=== PATIENT | female | born 1950 | race Caucasian/White ===

== ENCOUNTER 2016-06-19 18:15 | Emergency (ER) | payer OTHER ==
--- NOTE | 2016-06-19 20:36 | PROVIDER DOCUMENTATION ---
HPI-General Adult - General Source: patient - History of Present Illness -Gen Adult Nature of Presenting Problems: 66 y/o WF presents to ED with reports of cough, congestion x 3 days with weakness/fatigue, confusion x 1 day. Family states that she will have episodes of confusion, but seems to be better today. States that they were seen at [facility] walk in clinic today and after bloodwork and CXR, pt was sent here for "probable PNA and elecrolyte imbalances" per family. Denies any N/V/D/C, fever/ chills. States long hx of COPD and pt on 2 LPM of O2 at home. <Dayami Tran - Last Filed: 06/20/16 02:11> <Ash Chung - Last Filed: 06/20/16 03:03> <Néstor Ram - Last Filed: 06/20/16 04:52> - General Chief Complaint: General Adult Stated Complaint: PNEUMONIA Time Seen by Provider: 06/19/16 20:16 Allergies/Adverse Reactions: Patient Allergies Allergy/AdvReac Type Severity Reaction Status Date / Time iodine Allergy Severe SWELLING Verified 06/19/16 20:27 lamotrigine [From Lamictal] Allergy Severe RASH Verified 06/19/16 20:27 niacin Allergy Severe RASH Verified 06/19/16 20:27 shellfish derived Allergy Severe SWELLING Verified 06/19/16 20:27 salicylates Allergy Unknown Unknown Verified 06/19/16 20:27 levofloxacin [From Levaquin] Allergy SITE Verified 06/19/16 20:27 SWELLING WITH RASH Home Medications: Aspirin [Aspirin EC] 81 mg PO DAILY 03/20/13 Dicyclomine [Bentyl] 10 mg PO TID 03/20/13 Duloxetine [Cymbalta] 60 mg PO BID 03/20/13 Lisinopril 5 mg PO HS 03/20/13 ROSUVAstatin [Crestor] 10 mg PO QHS 03/20/13 Metformin [Glucophage] 500 mg PO BID CC 06/15/13 Levothyroxine [Synthroid] 50 microgm PO DAILY 06/16/14 Albuterol Sulfate [Proair Respiclick] 2 puff IH Q6H PRN PRN 03/25/15 Calcitonin,Douds,Synthetic [Calcitonin-Douds] 1 spray NS DAILY 03/25/15 Docusate Sodium [Colace] 300 mg PO DAILY 03/25/15 Fluticasone/Salmeterol [Advair 250-50 Diskus] 1 puff IH BID 03/25/15 Multivitamin [Multivitamins] 1 each PO DAILY 03/25/15 Esomeprazole Magnesium [Nexium] 20 mg PO HS 09/16/15 Hydrocodone/APAP 5 mg/325 mg [[place]-5] 1 each PO BID PRN PRN 02/27/16 Hydroxyzine 25 mg PO DAILY 02/27/16 Methadone 10 mg PO DAILY PRN PRN 02/27/16 Morphine Sulfate 100 mg PO BID PRN PRN 02/27/16 Pregabalin [Lyrica] 25 mg PO BID 02/27/16 Review of Systems - Adult - REVIEW OF SYSTEMS - ADULT Constitutional: reports: no symptoms reported. denies: chills, fever Eyes: reports: no symptoms reported. denies: blurred vision, double vision Ears, Nose, Mouth & Throat: reports: no symptoms reported. denies: ear pain, nose pain, throat pain Cardiovascular: reports: no symptoms reported. denies: chest pain, palpitations Respiratory: reports: see HPI, cough, shortness of breath. denies: dyspnea on exertion Gastrointestinal: reports: no symptoms reported. denies: abdominal pain, nausea , vomiting Genitourinary: reports: no symptoms reported. denies: dysuria, frequency Musculoskeletal: reports: no symptoms reported. denies: joint pain, joint swelling Integumentary: reports: no symptoms reported. denies: nail changes, rash Neurological: reports: no symptoms reported. denies: numbness, paresthesia Psychiatric: reports: no symptoms reported Endocrine: reports: no symptoms reported. denies: cold intolerance, heat intolerance Hematologic/Lymphatic: reports: no symptoms reported. denies: easy bruising, prolonged bleeding Allergic/Immunologic: reports: no symptoms reported All Other Systems: Reviewed and Negative <Dayami Tran - Last Filed: 06/20/16 02:11> Past History - Adult - PAST MEDICAL HISTORY-ADULT Review of Records: reports: Nursing Assessment Review, Medications Reviewed Major Childhood Illnesses: reports: denies history Cardiovascular: reports: HTN, other (AAA) Respiratory: reports: asthma, COPD Gastrointestinal: reports: denies history Obstetrical/Gynecological: reports: denies history Genitourinary: reports: denies history Musculoskeletal: reports: denies history Neurological: reports: denies history Psychiatric: reports: anxiety Endocrine/Immune: reports: denies history, Diabetes Other Conditions: reports: denies history - PRIOR SURGERIES/PROCEDURES Surgical/Procedure History: reports: reviewed, not pertinent, hysterectomy, other (AAA,bladder tach) - IMMUNIZATION STATUS Childhood Immunizations: See Nurse Assessment Flu Vaccine: See Nurse Assessment - FAMILY HISTORY Family History: reviewed, not pertinent - SOCIAL HISTORY Smoking: cigarettes, less than 1 pack/day Provider spent 3-5 mins advising pt. on dangers of tobacco.: Discussed manners to quit use, and f/u contacts for add'l counseling. <Dayami Tran - Last Filed: 06/20/16 02:11> Physical Exam-General - PHYSICAL EXAM-ADULT Initial Vital Signs Reviewed: Yes - CONSTITUTIONAL General Appearance: alert, moderate distress, cachetic - EYES Eyes: pink conjunctivae - HEAD, EARS, NOSE, MOUTH & THROAT HENMT: normocephalic/atraumatic - NECK Neck: normal inspection - RESPIRATORY Respiratory: decreased breath sounds, rhonchi, wheezing. negative: crackles, rales, stridor - CARDIOVASCULAR Cardiovascular: regular rate, rhythm. negative: bradycardia, tachycardia - GASTROINTESTINAL (ABDOMEN) Abdominal Exam: normal bowel sounds, non tender, soft. negative: distended, guarding, rigid, rebound - MUSCULOSKELETAL Back Exam: kyphosis Extremity: normal inspection, no pedal edema - SKIN Integumentary: normal color, normal turgor, warm/dry - NEUROLOGIC Neurologic: negative: aphasia - PSYCHIATRIC Psych/Mental Status: normal mood/affect, normal thought content, normal thought process, oriented x 3 (A&O x 4) <Dayami Tran - Last Filed: 06/20/16 02:11> Progress - XRAY 1 XRAY Study: Chest XRAY Interpretation: R lower lobe infiltrate with questionable central sternal mass - CHANGE OF SHIFT REPORT (ED Provider) Report Given and Care Transferred to:: Dr. Ram Time of Transfer: 02:11 Items Pending: CT/MRI Results <Dayami Tran - Last Filed: 06/20/16 02:11> - EKG 1 Time of EKG reading by physician:: 02:24 EKG Read and Signed by:: Néstor Ram EKG Interpretation (*Must complete 3 of following elements*): Abnormal Rate: 152 Rhythm: SINUS TACHYCARDIA Comments: MARKED ST ABNORMALITY. POSS. INFEROLATEWRAL SUBENDOCARDIAL INJURY. <Ash Chung - Last Filed: 06/20/16 03:03> Departure <Dayami Tran - Last Filed: 06/20/16 02:11> <Ash Chung - Last Filed: 06/20/16 03:03> - Departure Time of Disposition Order: 04:50 Certified Medical Emergency: Emergent <Néstor Ram - Last Filed: 06/20/16 04:52> - Departure DIAGNOSIS: Neoplasm of lung, Ischemic heart disease with chronotropic incompetence, Chronic obstructive lung disease Cardiac dysrhythmia Qualifiers: Arrhythmia type: supraventricular tachycardia Qualified Code(s): I47.1 - Supraventricular tachycardia Disposition: HOME 01 Condition: Fair Additional Instructions: CALL THIS MORNING FOR APPOINTMENT WITH DR VALLECILLO FOR REFERRALS TO [employer] Referrals: Renny Vallecillo MD [Primary Care Provider] - Attestation - Physician/ Mid-level Attestation Patient care was provided by Mid-level provider ([employer]/PA):: Yes Mid-level provider:: Dayami Tran Mid-level documentation review:: The Mid-level provider documentation, treatment plan and medical decision making was reviewed by the physician who agrees with all treatment and medical decision making by the [facility]. <Dayami Tran - Last Filed: 06/20/16 02:11> Physician Attestation
[2016-06-19 21:18] LABS: MANUAL DIFF NEEDED? NO
[2016-06-19 21:20] LABS: BASO% 0.6 % (0.0-0.8); EOS# 0.14 X1000 (0.0-0.7); HEMATOCRIT 33.2 % (37.0-47.0); HEMOGLOBIN 10.8 g/dL (12.0-16.0); LYMPH# 1.02 X1000 (1.2-3.4); LYMPH% 14.4 % (20.5-51.1); MCH 28.1 PG (27-31); MCHC 32.5 g/dL (33-37); MCV 86.2 FL (81-99); MONO# 0.55 X1000 (0.11-0.59); MONO% 7.8 % (1.7-9.3); NEUT% 75.2 % (42.2-75.2); PLT 225 X1000 (130-400); RBC 3.85 XMIL (4.2-5.4)
[2016-06-19 21:43] LABS: AGAP 9; ALBUMIN 3.7 g/dL (3.5-5.0); ALKALINE PHOSPHATASE 95 U/L (32-104); BUN 24 mg/dL (8-22); CALCIUM 8.9 mg/dL (8.8-10.2); CHLORIDE 102 mmol/L (98-107); COSMO 275; GOT 13 U/L (10-30); GPT 11 U/L (10-36); SODIUM 133 mmol/L (136-145); TCO2 22 mmol/L (25-35); TOTAL PROTEIN 8.1 g/dL (6.3-8.3)
[2016-06-20] MEDS ORDERED: MORPHINE IM ONE (01:21)
[2016-06-20] MEDS ORDERED: DUONEB (A & A) INH ONE (01:21)
[2016-06-20] MEDS ORDERED: ADENOCARD IV ONE (02:04)
[2016-06-20] MEDS ORDERED: NS 1,000 ML IV ONE (02:06)
[2016-06-20] MEDS ORDERED: CARDIZEM IV ONE ×2 (02:48→02:50)
[2016-06-20] MEDS ORDERED: CARDIZEM CD PO ONE (02:50)
[2016-06-20] MEDS ORDERED: CARDIZEM ONE (02:55)
[2016-06-20 05:08] VITALS: BP 113/69
--- NOTE | 2016-06-20 05:45 | EKG Report ---
Test Performed on : 06/20/2016 04:22:31 AM Test Reason : pain Blood Pressure : / mmHG Vent. Rate : 085 BPM Atrial Rate : 085 BPM P-R Int : 182 ms QRS Dur : 098 ms QT Int : 456 ms P-R-T Axes : 057 060 059 degrees QTc Int : 542 ms Normal sinus rhythm. Possible Left atrial enlargement T wave abnormality, consider inferior ischemia T wave abnormality, consider anterolateral ischemia Prolonged QT Abnormal ECG When compared with ECG of 20-JUN-2016 02:23, (Unconfirmed) Significant changes have occurred Unconfirmed Result
--- NOTE | 2016-06-20 06:16 | EKG Report ---
Test Performed on : 06/20/2016 02:23:41 AM Test Reason : repeat Blood Pressure : / mmHG Vent. Rate : 152 BPM Atrial Rate : 152 BPM P-R Int : 208 ms QRS Dur : 084 ms QT Int : 300 ms P-R-T Axes : 042 083 241 degrees QTc Int : 477 ms Sinus tachycardia. Marked ST abnormality, possible inferolateral subendocardial injury Abnormal ECG When compared with ECG of 27-FEB-2016 16:57, ST now depressed in Inferior leads ST more depressed in Anterolateral leads Inverted T waves have replaced nonspecific T wave abnormality in Inferior leads Inverted T waves have replaced nonspecific T wave abnormality in Anterolateral leads Unconfirmed Result
--- NOTE | 2016-06-20 09:47 | Diag Imaging Result Document ---
PROCEDURE NAME: CHEST-2 VIEWS - 06/19/2016 CHEST, TWO VIEWS: COMPARISON: 03/01/2016. FINDINGS: There is a large focal opacity within the right middle lobe which is nonspecific in appearance and could represent parenchymal consolidation or mass. A smaller opacity was noted at the right lung base on the previous study of 03/01/2016. CT scan of the chest should be considered. There are prominent interstitial markings, right lung, similar to prior study. Left lung is clear. No pneumothorax is appreciated. There is increased density in the subcarinal region, nonspecific in appearance. IMPRESSION: Interval increase in size of the right basilar pulmonary opacity. Findings may indicate pneumonia or mass. CT scan of the thorax should be considered. Correlate clinically.
--- NOTE | 2016-06-20 10:36 | Diag Imaging Result Document ---
PROCEDURE NAME: CT THORAX W/O CONTRAST - 06/20/2016 CT SCAN OF THE THORAX WITHOUT CONTRAST: COMPARISON: 10/09/2015. INDICATION: Chest mass. FINDINGS: There is bulky mediastinal lymphadenopathy measuring at least 4.5 cm in the subcarinal region. There is bulky pretracheal and AP pulmonary window adenopathy. There is right hilar adenopathy producing a mass effect upon the right middle lobe bronchus. There is dense consolidation with air bronchograms involving the right middle lobe. Also, within the right lower lobe there is a new 2.7 x 2.2 cm lobulated mass. There is probably a small amount of loculated fluid anteriorly on the right. There is pulmonary emphysema. There are new alveolar infiltrates within the anterior left upper lobe and left lower lobe which are new from the prior study. There are multiple ill-defined nodular opacities throughout the right lung, most of which were present on the prior study. No pericardial effusion is identified. IMPRESSION: 1. New 2.7 cm mass in the right lower lobe. The findings are suspicious for bronchogenic carcinoma or less likely metastasis. 2. New consolidation and atelectasis in the right middle lobe likely secondary to compression of the right middle lobe bronchus from bulky hilar and mediastinal lymphadenopathy. 3. New infiltrates within the left upper and left lower lobes. 4. Multiple stable irregular opacities in the right lung. 5. Small amount of loculated fluid, anterior right hemithorax.
== END 2016-06-20 05:34 | disposition home or self-care (01) ==
LOC: P.ED 18:15
DX: I47.1 Supraventricular tachycardia (principal); C34.90 Malignant neoplasm of unspecified part of unspecified bronchus or lung; I25.89 Other forms of chronic ischemic heart disease; J44.9 Chronic obstructive pulmonary disease, unspecified; R05 Cough; R06.02 Shortness of breath; I10 Essential (primary) hypertension; E11.9 Type 2 diabetes mellitus without complications; Z79.899 Other long term (current) drug therapy; Z86.79 Personal history of other diseases of the circulatory system; R94.31 Abnormal electrocardiogram [ECG] [EKG]; F17.210 Nicotine dependence, cigarettes, uncomplicated; Z71.6 Tobacco abuse counseling; R06.2 Wheezing; M40.209 Unspecified kyphosis, site unspecified; Z79.82 Long term (current) use of aspirin
CPT/HCPCS: 71020; 71250; 80053; 82550; 83605; 83880; 84484; 85025; 87040; 87804; 93005; 94640; 96361; 96374; 96375; 96376; J2270; J7030

== ENCOUNTER 2016-08-01 17:34 | Inpatient (IN) | payer OTHER ==
--- NOTE | 2016-08-01 18:04 | EKG Report ---
Test Performed on : 08/01/2016 5:57:11 PM Test Reason : CHEST PAIN Blood Pressure : / mmHG Vent. Rate : 088 BPM Atrial Rate : 088 BPM P-R Int : 164 ms QRS Dur : 102 ms QT Int : 396 ms P-R-T Axes : 067 077 072 degrees QTc Int : 479 ms Normal sinus rhythm. Possible Left atrial enlargement Borderline ECG When compared with ECG of 20-JUN-2016 04:22, T wave inversion no longer evident in Inferior leads QT has shortened Unconfirmed Result
--- NOTE | 2016-08-01 18:17 | ED EKG INTERP ---
EKG Interpretation - EKG Time of EKG reading by physician:: 17:57 EKG Read and Signed by:: Jose Herman EKG Interpretation (*Must complete 3 of following elements*): Normal Rate: 88 Rhythm: NSR Comments: Possible left atrial enlargement, Borderline ECG Attestation - Scribe Verification/Attestation Scribe:: Rody Chavez Acting as Scribe for:: Jose Herman Scribe documention review:: This chart was documented by a scribe and accurately reflects the service the provider performed and the decisions made by the provider.
--- NOTE | 2016-08-01 18:21 | ED EKG INTERP ---
EKG Interpretation - EKG Time of EKG reading by physician:: 18:12 EKG Read and Signed by:: Jose Herman EKG Interpretation (*Must complete 3 of following elements*): Normal Rate: 86 Rhythm: Sinus Rhythm marked Sinus arrhythmia Comments: Otherwise Normal ECG - EKG # 2 Time of EKG reading by physician:: 18:13 EKG Read and Signed by:: Jose Herman EKG Interpretation (*Must complete 3 of following elements*): Abnormal (ST&T wave abnormality, consider inferior ischemia, and consider anterolateral ischemia) Rate: 143 Rhythm: Supraventricular tachycardia Comments: Abnormal ECG Attestation - Scribe Verification/Attestation Scribe:: Rody Chavez Acting as Scribe for:: Jose Herman Scribe documention review:: This chart was documented by a scribe and accurately reflects the service the provider performed and the decisions made by the provider.
[2016-08-01] MEDS ORDERED: CARDIZEM ONE (18:25)
[2016-08-01] MEDS ORDERED: CARDIZEM CD PO ONE (18:30)
--- NOTE | 2016-08-01 18:34 | PROVIDER DOCUMENTATION ---
HPI-Cardiac General - General Chief Complaint: Dizziness Stated Complaint: PT IN SVT PER Time Seen by Provider: 08/01/16 18:31 Source: patient Allergies/Adverse Reactions: Patient Allergies Allergy/AdvReac Type Severity Reaction Status Date / Time iodine Allergy Severe SWELLING Verified 06/19/16 20:27 lamotrigine [From Lamictal] Allergy Severe RASH Verified 06/19/16 20:27 niacin Allergy Severe RASH Verified 06/19/16 20:27 shellfish derived Allergy Severe SWELLING Verified 06/19/16 20:27 salicylates Allergy Unknown Unknown Verified 06/19/16 20:27 levofloxacin [From Levaquin] Allergy SITE Verified 06/19/16 20:27 SWELLING WITH RASH Home Medications: Home Medication List Medication Instructions Recorded Confirmed Last Taken Type Aspirin [Aspirin EC] 81 mg PO DAILY 03/20/13 02/27/16 09/16/15 01:00 History Dicyclomine [Bentyl] 10 mg PO TID 03/20/13 02/27/16 08/26/15 History Duloxetine [Cymbalta] 60 mg PO BID 03/20/13 02/27/16 09/16/15 01:00 History Lisinopril 5 mg PO HS 03/20/13 02/27/16 09/16/15 01:00 History ROSUVAstatin [Crestor] 10 mg PO QHS 03/20/13 02/27/16 09/16/15 01:00 History Metformin [Glucophage] 500 mg PO BID CC 06/15/13 02/27/16 09/15/15 15:00 History Levothyroxine [Synthroid] 50 microgm PO DAILY 06/16/14 02/27/16 09/15/15 05:00 History Albuterol Sulfate [Proair 2 puff IH Q6H PRN PRN 03/25/15 02/27/16 09/15/15 11: 00 History Respiclick] Calcitonin,[place],Synthetic 1 spray NS DAILY 03/25/15 02/27/16 09/16/15 01:00 History [Calcitonin-[place]] Docusate Sodium [Colace] 300 mg PO DAILY 03/25/15 02/27/16 09/16/15 01:00 History Fluticasone/Salmeterol [Advair 1 puff IH BID 03/25/15 02/27/16 09/16/15 01:00 History 250-50 Diskus] Multivitamin [Multivitamins] 1 each PO DAILY 03/25/15 02/27/16 09/16/15 01:00 History Esomeprazole Magnesium [Nexium] 20 mg PO HS 09/16/15 02/27/16 09/16/15 01:00 History Baclofen [Lioresal] 10 mg PO TID@0900,1500,2100 #30 10/12/15 02/27/16 Unknown Rx tablet Tiotropium Conrad Inhaler 1 puff INH RTDAILY #1 inhaler 10/12/15 02/27/16 Unknown Rx [Spiriva] Hydrocodone/APAP 5 mg/325 mg 1 each PO BID PRN PRN 02/27/16 02/27/16 Unknown History [R[place]law-5] Hydroxyzine 25 mg PO DAILY 02/27/16 02/27/16 Unknown History Methadone 10 mg PO DAILY PRN PRN 02/27/16 02/27/16 Unknown History Morphine Sulfate 100 mg PO BID PRN PRN 02/27/16 02/27/16 Unknown History Pregabalin [Lyrica] 25 mg PO BID 02/27/16 02/27/16 Unknown History Amoxicillin/Potassium Clav 1 each PO Q12H #14 tablet 03/02/16 Unknown Rx [Augmentin 500-125 Tablet] Diltiazem C.d. [Cardizem C.d] 120 mg PO DAILY #30 capsule 03/02/16 Unknown Rx - History of Present Illness-Cardiac Nature of Presenting Problem: 66 Y/O F presents to ED with Dizziness. Pt was sent to ED by Dr. Christian due to being in SVT, Pt originally went to PMD due to dizziness, confusion, and incontinence. Location: reports: central Quality of Pain: reports: none Severity in ED: moderate Onset/Duration: this afternoon Timing: still present History of arrythmia: reports: SVT Associated Symptoms: reports: dizziness, shortness of breath Recently Seen Here or By Another Healthcare Provider: Yes Review of Systems - Adult - REVIEW OF SYSTEMS - ADULT Constitutional: denies: chills, fever Eyes: reports: no symptoms reported Ears, Nose, Mouth & Throat: reports: no symptoms reported Cardiovascular: reports: irregular heart rate Respiratory: reports: no symptoms reported Gastrointestinal: reports: no symptoms reported Genitourinary: reports: incontinence Musculoskeletal: reports: no symptoms reported Integumentary: reports: no symptoms reported Neurological: reports: dizziness/vertigo Psychiatric: reports: no symptoms reported Endocrine: reports: no symptoms reported Hematologic/Lymphatic: reports: no symptoms reported Allergic/Immunologic: reports: no symptoms reported All Other Systems: Reviewed and Negative Past History - Adult - PAST MEDICAL HISTORY-ADULT Review of Records: reports: Old Records Reviewed, Nursing Assessment Review, Medications Reviewed, Social history reviewed & non-contributory. Major Childhood Illnesses: reports: denies history Cardiovascular: reports: HTN, other (AAA) Respiratory: reports: asthma, COPD Gastrointestinal: reports: denies history Obstetrical/Gynecological: reports: denies history Genitourinary: reports: denies history Musculoskeletal: reports: denies history Neurological: reports: denies history Psychiatric: reports: anxiety Endocrine/Immune: reports: denies history, Diabetes Other Conditions: reports: denies history - PRIOR SURGERIES/PROCEDURES Surgical/Procedure History: reports: reviewed, not pertinent, hysterectomy, other (AAA,bladder tach) - IMMUNIZATION STATUS Childhood Immunizations: See Nurse Assessment Flu Vaccine: See Nurse Assessment - FAMILY HISTORY Family History: reviewed, not pertinent - SOCIAL HISTORY Smoking: cigarettes, greater than 1 pack/day Substance Use: none/never Alcohol Use Frequency: never Living Situation: family Physical Exam-General - CONSTITUTIONAL General Appearance: appears well, alert, no apparent distress - EYES Eyes: PERRL/EOMI, pink conjunctivae - HEAD, EARS, NOSE, MOUTH & THROAT HENMT: normocephalic/atraumatic, moist mucous membranes, normal ENT inspection, TMs normal - NECK Neck: non-tender, full range of motion, supple, normal inspection - RESPIRATORY Respiratory: chest non-tender - CARDIOVASCULAR Cardiovascular: normal peripheral pulses - GASTROINTESTINAL (ABDOMEN) Abdominal Exam: normal bowel sounds, non tender, soft - MUSCULOSKELETAL Back Exam: normal inspection Extremity: normal range of motion - SKIN Integumentary: normal color, normal turgor, warm/dry - NEUROLOGIC Neurologic: bologna maker II-XII nml as tested - PSYCHIATRIC Psych/Mental Status: normal mood/affect, normal thought content, normal thought process, oriented x 3 Progress - PLAN OF CARE/RESULTS Progress/Plan/Lab Results: Laboratory Tests 08/01/16 08/01/16 08/01/16 18:15 18:15 18:15 WBC RBC Hgb Hct MCV MCH MCHC RDW Std Deviation Plt Count MPV Immature Gran % (Auto) Neut % (Auto) Lymph % (Auto) Louisa % (Auto) Eos % (Auto) Baso % (Auto) Immature Gran # (Auto) Neut # (Auto) Lymph # (Auto) Louisa # (Auto) Eos # (Auto) Baso # (Auto) PT INR APTT (Factor Assay) D-Dimer Sodium 127 L Potassium 3.5 Chloride 94 L Carbon Dioxide 21 L Anion Gap 12 BUN 20 Creatinine 0.8 Estimated GFR/1.73 m2 > 60 BUN/Creatinine Ratio 25 Glucose 161 H Calculated Osmolality 261 Calcium 8.9 Magnesium 1.7 Total Bilirubin 0.30 AST 29 ALT 29 Alkaline Phosphatase 98 Creatine Kinase 543 H Creatine Kinase Index 2.9 H CK-MB (CK-2) 15.64 H Troponin T < 0.010 Eib-P-Cekboslmwbz Pept 390 H Total Protein 7.3 Albumin 3.1 L Globulin 4.0 Albumin/Globulin Ratio 1.0 Urine Source Urine Color Urine Clarity Urine pH Ur Specific [place] Urine Protein Urine Ketones Urine Blood Urine Nitrite Urine Bilirubin Urine Urobilinogen Urine Microscopic RBC Urine WBC Urine Microscopic WBC Ur Epithelial Cells Urine Bacteria Urine Glucose 08/01/16 08/01/16 08/01/16 18:15 18:15 18:15 WBC 8.55 RBC 3.60 L Hgb 10.1 L Hct 30.3 L MCV 84.2 MCH 28.1 MCHC 33.3 RDW Std Deviation 17.3 H Plt Count 262 MPV 8.4 Immature Gran % (Auto) 0.2 Neut % (Auto) 80.2 H Lymph % (Auto) 11.8 L Louis[place] % (Auto) 6.5 Eos % (Auto) 0.9 Baso % (Auto) 0.4 Immature Gran # (Auto) 0.02 Neut # (Auto) 6.85 H Lymph # (Auto) 1.01 L [place] # (Auto) 0.56 Eos # (Auto) 0.08 Baso # (Auto) 0.03 PT 14.2 INR 1.07 APTT (Factor Assay) 35.4 D-Dimer 2.38 H Sodium Potassium Chloride Carbon Dioxide Anion Gap BUN Creatinine Estimated GFR/1.73 m2 BUN/Creatinine Ratio Glucose Calculated Osmolality Calcium Magnesium 1.7 Total Bilirubin AST ALT Alkaline Phosphatase Creatine Kinase Creatine Kinase Index CK-MB (CK-2) Troponin T Twy-Z-Cilbnyurslv Pept Total Protein Albumin Globulin Albumin/Globulin Ratio Urine Source Urine Color Urine Clarity Urine pH Ur Specific [place] Urine Protein Urine Ketones Urine Blood Urine Nitrite Urine Bilirubin Urine Urobilinogen Urine Microscopic RBC Urine WBC Urine Microscopic WBC Ur Epithelial Cells Urine Bacteria Urine Glucose 08/01/16 21:10 WBC RBC Hgb Hct MCV MCH MCHC RDW Std Deviation Plt Count MPV Immature Gran % (Auto) Neut % (Auto) Lymph % (Auto) [place] % (Auto) Eos % (Auto) Baso % (Auto) Immature Gran # (Auto) Neut # (Auto) Lymph # (Auto) [place] # (Auto) Eos # (Auto) Baso # (Auto) PT INR APTT (Factor Assay) D-Dimer Sodium Potassium Chloride Carbon Dioxide Anion Gap BUN Creatinine Estimated GFR/1.73 m2 BUN/Creatinine Ratio Glucose Calculated Osmolality Calcium Magnesium Total Bilirubin AST ALT Alkaline Phosphatase Creatine Kinase Creatine Kinase Index CK-MB (CK-2) Troponin T Tbo-T-[place] Pept Total Protein Albumin Globulin Albumin/Globulin Ratio Urine Source CLEAN CATCH Urine Color YELLOW Urine Clarity CLEAR Urine pH 6.5 Ur Specific [place] 1.010 Urine Protein TRACE A Urine Ketones NEGATIVE Urine Blood NEGATIVE Urine Nitrite NEGATIVE Urine Bilirubin NEGATIVE Urine Urobilinogen 1+(1 mg/dL) Urine Microscopic RBC <10 Urine WBC TRACE A Urine Microscopic WBC <10 Ur Epithelial Cells <10 Urine Bacteria 1+ Urine Glucose NEGATIVE Orders Category Date Time Status Cardiac Monitoring DIRECTED Care 08/01/16 17:43 Active Oxygen Therapy- ED Nursing DIRECTED Care 08/01/16 17:43 Active Saline Loc NOW Care 08/01/16 17:43 Active ANGIOGRAM/PULMONARY ARTERIES [CT] Stat Exams 08/01/16 19:18 Taken HEAD W/CONTRAST [CT] Routine Exams 08/01/16 21:28 Taken HEAD W/O CONTRAST [CT] Stat Exams 08/01/16 20:32 Taken CBC WITH ELECTRONIC DIFF [HEME] Stat Lab 08/01/16 18:15 Completed CK PROFILE [SP CHEM] Stat Lab 08/01/16 18:15 Completed CK PROFILE [SP CHEM] Stat Lab 08/01/16 21:52 Ordered COMPREHENSIVE METABOLIC PANEL [CHEM] Stat Lab 08/01/16 18:15 Completed D-DIMER PL [COAG] Stat Lab 08/01/16 18:15 Completed MAGNESIUM [CHEM] Stat Lab 08/01/16 18:15 Completed MAGNESIUM [CHEM] Stat Lab 08/01/16 18:15 Completed PRO B-NATRIURETIC PEPTIDE Stat Lab 08/01/16 18:15 Com[address]IME WITH INR PL [COAG] Stat Lab 08/01/16 18:[address] [COAG] Stat Lab 08/01/16 18:15 Completed TROPONIN T Stat Lab 08/01/16 18:15 Completed TROPONIN T Stat Lab 08/01/16 21:[address] W/POSS RFLX CULT [URINALYSIS] Stat Lab 08/01/16 21:10 Completed URINE CULTURE [RM] Routine Lab 08/01/16 21:45 Ordered Diltiazem C.d. [Cardizem Cd] Med 08/01/16 18:30 Discontinued 120 mg PO NOW ONE Diltiazem [Cardizem] Med 08/01/16 18:25 Discontinued 120 mg .ROUTE .STK-MED ONE EKG [EKG] Stat Ther 08/01/16 17:43 Draft EKG [EKG] Stat Ther 08/01/16 20:09 Draft EKG [EKG] Stat Ther 08/01/16 20:10 Draft EKG [EKG] Stat Ther 08/01/16 21:52 Ordered Vital Signs - 24 hr 08/01/16 08/01/16 08/01/16 17:38 17:45 19:34 Temperature 97.3 F L 98.4 F Pulse Rate 92 H 94 H 91 H Respiratory 16 22 22 Rate Blood Pressure 109/72 107/70 O2 Sat by Pulse 96 100 Oximetry 08/01/16 08/01/16 19:50 21:41 Temperature Pulse Rate 137 H 92 H Respiratory 12 22 Rate Blood Pressure 102/71 112/70 O2 Sat by Pulse 92 L 93 L Oximetry - EKG 1 Time of EKG reading by physician:: 21:54 EKG Read and Signed by:: Jose Herman EKG Interpretation (*Must complete 3 of following elements*): Normal Rate: 90 Rhythm: NSR Comments: Possible left atrial enlargement, Borderline ECG - CT/MRI 1 CT Study: Angiogram (Mediastinal adenopathy, markedly worsened sinc4e 07/01/13. Bilateral peripheal lower love emboli. Patchy pneumio/pneumonitis and COPD, worsened opacity and volume lose in RML. Located effusion anteriorly on rt. 3.6cmRLL mass. Worsened RIL and RLL opacitites. Retroperitoneal, gastrohepatic and periportal adenopathy.) Impression: Abnormal CT Results: See Notes 2 CT Study: Head Impression: Normal CT Results: NO BLEED, MASS EFFECT, OR ABNORMAL ENHANCEMENTS - CONSULTS/PCP/HOSPITALIST Notification #1 *Consult/PCP/Hospitalist*: Dr. Blackwood Time Discussed: 23:17 Reason/Comments: Admit Consult Disposition: Admit (Admit Accepted) Departure - Departure Time of Disposition Order: 22:04 DIAGNOSIS: Pulmonary embolism Qualifiers: Pulmonary embolism type: other Chronicity: unspecified Acute cor pulmonale presence: without acute cor pulmonale Qualified Code(s): I26.99 - Other pulmonary embolism without acute cor pulmonale Disposition: ADMITTED INPATIENT 09 Certified Medical Emergency: Emergent Condition: Stable Additional Instructions: ED Follow Up Instructions: You have been treated by a care provider in the Emergency Department. These instructions are being provided to you so you can have an understanding of how to care for yourself upon discharge. Upon discharge from the Emergency Department, you are responsible for making arrangements for follow-up care by a physician of your choice. Take all prescribed medications as directed. Return to the Emergency Department immediately for any new or worsening symptoms. You may call the Physician Referral phone number at [phone] to obtain a list of Physicians who are taking new patients. Referrals: Yao Christian MD [Primary Care Provider] - Attestation - Scribe Verification/Attestation Scribe:: Rody Chavez Acting as Scribe for:: Jose Herman Scribe documention review:: This chart was documented by a scribe and accurately reflects the service the provider performed and the decisions made by the provider.
[2016-08-01 18:41] LABS: MANUAL DIFF NEEDED? NO
[2016-08-01 18:42] LABS: BASO% 0.4 % (0.0-0.8); EOS# 0.08 X1000 (0.0-0.7); EOS% 0.9 % (0.0-10.0); HEMATOCRIT 30.3 % (37.0-47.0); HEMOGLOBIN 10.1 g/dL (12.0-16.0); IMM GRAN# 0.02 X1000 (0.0-0.04); IMM GRAN% 0.2 % (0.0-0.5); LYMPH# 1.01 X1000 (1.2-3.4); LYMPH% 11.8 % (20.5-51.1); MCH 28.1 PG (27-31); MCHC 33.3 g/dL (33-37); MCV 84.2 FL (81-99); MONO# 0.56 X1000 (0.11-0.59); MONO% 6.5 % (1.7-9.3); MPV 8.4 FL (7.4-10.4); NEUT% 80.2 % (42.2-75.2); PLT 262 X1000 (130-400)
[2016-08-01 18:55] LABS: INR 1.07 (0.86-1.15); PROTIME 14.2 Seconds (12.1-15.5)
[2016-08-01 18:56] LABS: PTT PL 35.4 Seconds (22.6-43.9)
[2016-08-01 18:57] LABS: AGAP 12; ALBUMIN 3.1 g/dL (3.5-5.0); ALKALINE PHOSPHATASE 98 U/L (32-104); BUN 20 mg/dL (8-22); CALCIUM 8.9 mg/dL (8.8-10.2); CHLORIDE 94 mmol/L (98-107); COSMO 261; GOT 29 U/L (10-30); GPT 29 U/L (10-36); MAGNESIUM 1.7 mg/dL (1.5-2.7); POTASSIUM 3.5 mmol/L (3.5-5.1); SODIUM 127 mmol/L (136-145); TCO2 21 mmol/L (25-35); TOTAL PROTEIN 7.3 g/dL (6.3-8.3)
[2016-08-01 19:01] LABS: CK PROFILE 543 U/L (24-173)
[2016-08-01 19:35] LABS: CK INDEX 2.9 (0.0-2.5); CK-MB 15.64 ng/mL (0.0-5.0)
--- NOTE | 2016-08-01 20:11 | EKG Report ---
Test Performed on : 08/01/2016 6:13:34 PM Test Reason : svt Blood Pressure : / mmHG Vent. Rate : 143 BPM Atrial Rate : 074 BPM P-R Int : 000 ms QRS Dur : 100 ms QT Int : 316 ms P-R-T Axes : 000 085 253 degrees QTc Int : [address] & T wave abnormality, consider inferior ischemia ST & T wave abnormality, consider anterolateral ischemia Abnormal ECG When compared with ECG of 01-AUG-2016 18:12, (Unconfirmed) Vent. rate has increased BY 57 BPM T wave inversion now evident in Inferior leads T wave inversion now evident in Anterolateral leads Unconfirmed Result
--- NOTE | 2016-08-01 20:12 | EKG Report ---
Test Performed on : 08/01/2016 6:12:59 PM Test Reason : ekg Blood Pressure : / mmHG Vent. Rate : 086 BPM Atrial Rate : 086 BPM P-R Int : 162 ms QRS Dur : 106 ms QT Int : 376 ms P-R-T Axes : 074 085 075 degrees QTc Int : 449 ms Sinus rhythm. with marked sinus arrhythmia. Otherwise normal ECG When compared with ECG of 01-AUG-2016 17:57, (Unconfirmed) No significant change was found Unconfirmed Result
[2016-08-01 21:18] LABS: URINE SOURCE CLEAN CATCH
[2016-08-01 21:26] LABS: BILIRUBIN URINE NEGATIVE (NEGATIVE); BLOOD URINE NEGATIVE (NEGATIVE); CLARITY CLEAR (CLEAR); COLOR YELLOW; GLUCOSE URINE NEGATIVE (NEGATIVE); LEUKOCYTES URINE TRACE (NEGATIVE); NITRITE URINE NEGATIVE (NEGATIVE); PH URINE 6.5; PROTEIN URINE TRACE mg/dL (NEGATIVE); UROBILINOGEN URINE 1+(1 mg/dL)
[2016-08-01 21:44] LABS: URINE CULTURE PL NEEDED? YES; URINE EPITHELIAL CELLS <10 /HPF (<10); URINE RBC <10 /HPF (<10); URINE WBC <10 /HPF (<10)
--- NOTE | 2016-08-01 22:37 | EKG Report ---
Test Performed on : 08/01/2016 9:54:52 PM Test Reason : cp Blood Pressure : / mmHG Vent. Rate : 090 BPM Atrial Rate : 090 BPM P-R Int : 166 ms QRS Dur : 100 ms QT Int : 382 ms P-R-T Axes : 067 073 065 degrees QTc Int : 467 ms Normal sinus rhythm. Possible Left atrial enlargement Borderline ECG When compared with ECG of 01-AUG-2016 18:13, (Unconfirmed) Vent. rate has decreased BY 53 BPM T wave inversion no longer evident in Inferior leads T wave inversion no longer evident in Anterolateral leads Unconfirmed Result
[2016-08-01 23:26] LABS: CK INDEX 2.9 (0.0-2.5); CK-MB 11.88 ng/mL (0.0-5.0)
[2016-08-01] MEDS ORDERED: NS 1,000 ML IV SCH (23:45)
[2016-08-01] MEDS ORDERED: TYLENOL PO PRN (23:49)
[2016-08-01] MEDS ORDERED: MORPHINE IV PRN (23:49)
[2016-08-02] MEDS ORDERED: SODIUM CHLORIDE 0.9% 10 ML ONE (01:44)
[2016-08-02] MEDS ORDERED: LEVAQUIN 500 MG/D5W 100 ML IV ONE (02:10)
[2016-08-02] MEDS ORDERED: LEVAQUIN 500 MG/D5W 100 ML IV SCH (02:15)
[2016-08-02] MEDS: LOVENOX SUBQ SCH ×3 (02:17→23:40)
[2016-08-02] MEDS: NORCO-5 PO PRN ×2 (02:18→19:27)
[2016-08-02] MEDS: ROCEPHIN 1 GM/NS 50 ML IV SCH ×2 (04:05→08:57)
--- NOTE | 2016-08-02 08:29 | EKG Report ---
Test Performed on : 08/02/2016 08:13:58 AM Test Reason : R/O SVT Blood Pressure : / mmHG Vent. Rate : 095 BPM Atrial Rate : 095 BPM P-R Int : 172 ms QRS Dur : 102 ms QT Int : 364 ms P-R-T Axes : 067 078 064 degrees QTc Int : 457 ms Normal sinus rhythm. Possible Left atrial enlargement Borderline ECG When compared with ECG of 01-AUG-2016 21:54, (Unconfirmed) No significant change was found Confirmed by Jose Herman MD ([id number]) on 08/08/2016 9:05:09 PM
[2016-08-02] MEDS: COLACE PO SCH (08:56)
[2016-08-02] MEDS: LIORESAL PO SCH ×3 (08:56→20:48)
[2016-08-02] MEDS: MORPHINE IV PRN ×6 (08:57→23:40)
[2016-08-02] MEDS: ASPIRIN EC PO SCH (08:57)
[2016-08-02] MEDS: CYMBALTA PO SCH ×2 (08:57→20:47)
[2016-08-02] MEDS ORDERED: CARDIZEM CD PO SCH (09:00)
--- NOTE | 2016-08-02 09:15 | Diag Imaging Result Document ---
PROCEDURE NAME: ANGIOGRAM/PULMONARY ARTERIES - 08/01/2016 CTA CHEST: COMPARISON: 07/01/2013. FINDINGS: There is excessive respiratory motion artifact at the lower lung zones. This limits sensitivity and specificity for detection of small distal pulmonary emboli. However, there are a few distal pulmonary artery branches at both lung bases that are not well opacified. As such, small pulmonary emboli cannot be excluded. However, it is certainly possible that this is an artifact due to the excessive motion. No large central pulmonary emboli are identified. There is mild descending aortic atherosclerotic calcification. There is no evidence of aortic dissection or aneurysm. There is severe mediastinal lymphadenopathy and right hilar lymphadenopathy. This has worsened significantly during the interval. For reference, there is a large conglomerate eliseo mass in the pretracheal region that measures up to 5.9 x 5.2 cm axially. There is also significant subcarinal lymphadenopathy. There is extensive pulmonary emphysema. In the right lower lobe near the base there is a mass measuring 3.3 x 2.8 cm. This is highly concerning for malignancy. There are multilobar infiltrates involving the right lung with a basilar predominance. This is worse at the right middle lobe and right lower lobe at the base. There is milder infiltrate at the inferior right upper lobe. This suggests pneumonia. There is also volume loss involving the right middle lobe. There is much milder infiltrate at the medial left lung base and anterolateral left lung base. There is a small loculated pleural fluid collection at the anterior aspect of the right lung base. Limited views of the upper abdomen reveal extensive lymphadenopathy in the retroperitoneal, periportal, and epigastric spaces. This has developed during the interval. IMPRESSION: 1. Right basilar lung mass and severe mediastinal and right hilar lymphadenopathy, highly concerning for malignancy. 2. Emphysema. 3. Extensive airspace consolidation at the mid and lower lung zone on the right and minimal consolidation at the left lung base suggesting pneumonia/pneumonitis. 4. Loculated pleural effusion at the anterior right lung base. 5. Extensive lymphadenopathy involving the upper abdomen. 6. Questionable filling defects in the distal branches of the pulmonary arteries bilaterally at the bases, which could indicate a small distal pulmonary emboli. However, there is excessive motion artifact in this region. It is possible that it is artifactual.
[2016-08-02] MEDS ORDERED: CARDIZEM PO ONE (11:12)
[2016-08-02] MEDS ORDERED: MAXIPIME 1 GM/NS 50 ML IV SCH (11:15)
[2016-08-02] MEDS ORDERED: FLAGYL 500 MG/NS 100 ML IV SCH (11:15)
[2016-08-02] MEDS: ZOSYN 3.375 GM/NS 50 ML IV SCH ×3 (11:23→23:39)
[2016-08-02] MEDS: SODIUM CHLORIDE 0.9% INJ SCH (11:25)
[2016-08-02] MEDS: PROTONIX IV SCH (11:25)
[2016-08-02] MEDS: NS 1,000 ML IV SCH (11:26)
[2016-08-02] MEDS: METHADONE PO PRN (11:41)
[2016-08-02] MEDS ORDERED: XOPENEX NEB INH PRN (11:52)
[2016-08-02 11:55] LABS: URINE CULTURE PL NEEDED? NO
--- NOTE | 2016-08-02 11:59 | EKG Report ---
Test Performed on : 08/02/2016 11:07:29 AM Test Reason : op Blood Pressure : / mmHG Vent. Rate : 145 BPM Atrial Rate : 145 BPM P-R Int : 128 ms QRS Dur : 092 ms QT Int : 304 ms P-R-T Axes : 000 082 252 degrees QTc Int : 472 ms Sinus tachycardia. Low voltage QRS ST & T wave abnormality, consider inferior ischemia ST & T wave abnormality, consider anterolateral ischemia Abnormal ECG When compared with ECG of 02-AUG-2016 08:13, (Unconfirmed) Vent. rate has increased BY 50 BPM T wave inversion now evident in Inferior leads T wave inversion now evident in Anterolateral leads Confirmed by Jose Herman MD ([id number]) on 08/08/2016 9:05:00 PM
[2016-08-02 12:13] LABS: BILIRUBIN URINE NEGATIVE (NEGATIVE); BLOOD URINE NEGATIVE (NEGATIVE); CLARITY CLEAR (CLEAR); COLOR YELLOW; GLUCOSE URINE NEGATIVE (NEGATIVE); LEUKOCYTES URINE NEGATIVE (NEGATIVE); NITRITE URINE NEGATIVE (NEGATIVE); PROTEIN URINE NEGATIVE (NEGATIVE); SP GRAVITY URINE 1.005; UROBILINOGEN URINE 1+(1 mg/dL)
[2016-08-02 12:20] LABS: URINE EPITHELIAL CELLS <10 /HPF (<10); URINE SOURCE CATH
--- NOTE | 2016-08-02 12:59 | HISTORY AND PHYSICAL ---
CHIEF COMPLAINT: Shortness of breath. Altered mentation. HISTORY OF PRESENT ILLNESS: This is a 66-year-old female with history of recently diagnosed lung cancer followed by Dr. Polk, who comes in for altered mentation and shortness of breath. She came in last night with significant dyspnea, confusion, dizziness. She was seen in urgent care per Dr. Christian, felt to be in SVT, and was sent to the ER for evaluation. She was evaluated for further treatment. She was noted to be in periodic SVT and rate controlled. She was found to have a PE and she was admitted for treatment. Over read on CT angiogram did show pneumonia, lung mass, filling defects and lower lobe emboli, and a loculated pleural effusion. Patient admitted for again multiple issues. She does report a cough, but no fevers, progressive shortness of breath, but mostly intermittent confusion. PAST MEDICAL HISTORY: Chronic obstructive pulmonary disease on home oxygen, recent right lower lobe pneumonia, and AAA history. PAST SURGICAL HISTORY: She has also had hysterectomy and bladder tack and AAA repair. SOCIAL HISTORY: She still smokes a pack a day. She has done that for multiple years. Alcohol negative. ALLERGIES: She is allergic to iodine, lamotrigine, niacin, shellfish, salicylates and Levaquin. REVIEW OF SYSTEMS: Otherwise negative times a 10 point review of systems. PHYSICAL EXAMINATION: VITAL SIGNS: Blood pressure 107/65, heart rate of 90 respiratory of 15, temperature 98.0 degrees, satting 97% on 2 L. GENERAL: Thin female in no acute distress. HEAD EXAM: Normocephalic, atraumatic. EYE EXAM: Pupils equal, round, reactive to light. Extraocular movements were intact. EAR/NOSE/THROAT EXAM: Showed moist mucous membranes. NECK EXAM: Supple. CARDIOVASCULAR EXAM: This was tachy, but regular. PULMONARY EXAM: Bilateral breath sounds. Diminished at bases. GI: Soft, nontender, nondistended. Bowel sounds are positive. EXTREMITY EXAM: No clubbing or cyanosis. No palpable cords. No Homans sign, although she has been complaining of pain in her left leg. NEUROLOGICAL: Exam was nonfocal. LABORATORY DATA/X-RAY DATA: White count 8.5, hemoglobin and hematocrit 10 and 30, platelets 262. Sodium 127. Cardiac enzymes were negative. Troponin negative. D-dimer positive. Urine was unremarkable. Flu test was negative. CT showed multiple issues with pneumonia in the right lobe left base, loculated pleural effusion right lower lobe, extensive lymphadenopathy, questionable filling defects which could be small distal pulmonary emboli, right basilar lung mass which again is known. PROBLEM LIST: This is a 66-year-old female presenting with dyspnea, cough, altered mentation, evidence of pneumonia and possible pulmonary embolism. 1. Pneumonia. We will continue empiric antibiotics. I will do Zosyn just to treat for postobstructive pneumonia. Continue breathing treatments as needed. Oxygen therapy. 2. Questionable pulmonary embolism. Will evaluate with Doppler ultrasound and follow. 3. Supraventricular tachycardia. Currently she has still intermittent episodes of sinus tachycardia. I am not sure if that may be reactive. At this point, I do not think she has jennifer supraventricular tachycardia, but we will continue her Cardizem and follow. 4. Disposition: Pending her clinical status. We will continue to monitor in the ICU.
[2016-08-02] MEDS ORDERED: PRILOSEC PO SCH (21:00)
[2016-08-03] MEDS: NS 1,000 ML IV SCH (01:15)
[2016-08-03] MEDS: DILAUDID IV PRN ×5 (03:02→22:26)
[2016-08-03] MEDS: XANAX PO PRN ×2 (03:02→22:37)
[2016-08-03] MEDS: ZOSYN 3.375 GM/NS 50 ML IV SCH ×3 (05:12→18:21)
[2016-08-03 06:30] LABS: HEMATOCRIT 30.7 % (37.0-47.0); MCH 27.4 PG (27-31); MCHC 32.6 g/dL (33-37); MCV 84.1 FL (81-99); MPV 8.5 FL (7.4-10.4); RBC 3.65 XMIL (4.2-5.4)
[2016-08-03 07:04] LABS: AGAP 13; BUN 9 mg/dL (8-22); CALCIUM 8.8 mg/dL (8.8-10.2); CHLORIDE 99 mmol/L (98-107); COSMO 267; MAGNESIUM 1.7 mg/dL (1.5-2.7); POTASSIUM 3.1 mmol/L (3.5-5.1); SODIUM 133 mmol/L (136-145); TCO2 21 mmol/L (25-35)
[2016-08-03] MEDS: COLACE PO SCH (08:56)
[2016-08-03] MEDS: CARDIZEM CD PO SCH (08:56)
[2016-08-03] MEDS: LIORESAL PO SCH ×3 (08:56→22:21)
[2016-08-03] MEDS: ASPIRIN EC PO SCH (08:57)
[2016-08-03] MEDS: CYMBALTA PO SCH ×2 (08:57→22:21)
[2016-08-03] MEDS ORDERED: ZOFRAN IV PRN (09:53)
[2016-08-03] MEDS: NORCO-5 PO PRN ×2 (10:27→19:55)
[2016-08-03] MEDS: LOVENOX SUBQ SCH (11:20)
[2016-08-03] MEDS: PROTONIX IV SCH (11:20)
[2016-08-03] MEDS: METHADONE PO PRN (11:20)
[2016-08-03] MEDS ORDERED: MOVANTIK PO ONE (12:06)
--- NOTE | 2016-08-03 13:20 | Diag Imaging Result Document ---
PROCEDURE NAME: KUB ABDOMEN - 08/03/2016 PORTABLE AP SUPINE ABDOMEN: COMPARISON: 02/28/2016. FINDINGS: There is a large amount of retained fecal debris in the colon and rectum, particularly the right colon, compatible with constipation. The bowel gas pattern otherwise appears nonspecific and nonobstructive. There are degenerative changes noted at the lower lumbar spine and right hip. IMPRESSION: Constipation.
--- NOTE | 2016-08-03 13:53 | PROGRESS NOTE ---
DATE: 08/03/2016 SUBJECTIVE: Patient has no focal complaints. OBJECTIVE: Blood pressure 131/81, heart rate of 80, respiratory rate 19, temperature 97.8 degrees, 97% on 3 L.Cardiovascular: Regular rate and rhythm. Pulmonary: Bilateral breath sounds. Clear to auscultation. Decreased at the bases. GI: Soft, nontender. Current mild tenderness, nondistended. Bowel sounds are positive. LABORATORY DATA: Hemoglobin and hematocrit 10 and 30. Chemistries: Potassium 3.1. Troponin was normal. Urine was okay. Reports head CT was normal. PROBLEM LIST: 1. SVT. She seems to be controlled now on the Cardizem. I am a little concerned about keeping her on the Lovenox because she seems to be having a lot of GI complaints but that may be related to chronic constipation. I am not completely convinced at this point she does have PE. Her Dopplers were negative. I am going to pursue V/Q scan which may or may not be illuminating but if she does not have significant perfusion defects, I think we may consider not anticoagulating her long-term although I think she is seen by Dr. Polk. I will touch base with him. 2. Severe constipation abdominal pain. We will continue bowel regimen. Check plain films and follow. 3. Lung cancer. Right now she is on standby for treatment. 4. Pneumonia, possibly postobstructive. She is on Zosyn day 2. DISPOSITION: Likely to floor today, possibly home the next 1-2 days.
--- NOTE | 2016-08-03 14:25 | Diag Imaging Result Document ---
PROCEDURE NAME: LUNG SCAN / VQ - 08/03/2016 LUNG VENTILATION AND PERFUSION SCAN: FINDINGS: Ventilation images performed using 38 millicurie technetium-99m DTPA aerosol inhaled. Perfusion images performed using 5.9 millicurie technetium-99m MAA administered intravenously. Ventilation and perfusion images are obtained in multiple projections over the lungs. Ventilation is somewhat heterogeneous. Perfusion is relatively homogeneous. There is a matching ventilation and perfusion defect at the apical posterior segment of the left upper lobe. There is no ventilation-perfusion mismatch (area which is ventilated but not perfused) identified. IMPRESSION: Low probability for pulmonary embolism.
--- NOTE | 2016-08-03 14:27 | ECHO REPORT ---
ORDER DATE: 08/02/2016 INDICATION FOR THE STUDY: SVT, dizziness, shortness of breath, COPD. FINDINGS: 1. Right atrium is normal size at 2.9 cm. 2. Mild tricuspid regurgitation. RV systolic pressure of 43. 3. Normal RV size and systolic function. 4. Trace pulmonic insufficiency. 5. Normal left atrial size at 3.7 cm. 6. No mitral prolapse. Trace mitral regurgitation. 7. Normal LV size, end-diastolic dimension of 4.6. Normal wall thicknesses with a posterior and interventricular septal wall thickness is 0.7 cm each. Normal LV systolic function. Estimated EF of 65% with normal wall motion. 8. Aortic valve opens well although there is some thickening and calcification of the leaflets, predominantly the non coronary cusp. There is mild aortic insufficiency with no evidence of stenosis. 9. Aorta appears normal on visualized segments. 10. No pericardial effusion seen.
[2016-08-03] MEDS: MIRALAX PO SCH (14:30)
--- NOTE | 2016-08-03 15:21 | Diag Imaging Result Document ---
PROCEDURE NAME: CHEST-2 VIEWS - 08/03/2016 CHEST 2 VIEWS: COMPARISON: 06/19/2016. FINDINGS: There is increased infiltrate at the right lower lobe. There is increased atelectasis with possible underlying consolidation in the right middle lobe. There has been development of a small right pleural effusion. There are emphysematous changes. There is no pneumothorax identified. There is fullness at the azygous region of the mediastinum which may relate to adenopathy. IMPRESSION: Increased infiltrate at right lower lobe. Increased atelectasis at right middle lobe. Development of small right pleural effusion. Possible adenopathy at azygous region of mediastinum.
[2016-08-03] MEDS: ADVAIR 250/50 DISKUS INH SCH (20:25)
[2016-08-03] MEDS: LYRICA PO SCH (22:21)
[2016-08-03] MEDS: CRESTOR PO SCH (22:21)
[2016-08-03] MEDS: BENTYL PO SCH (22:32)
[2016-08-04] MEDS: ZOSYN 3.375 GM/NS 50 ML IV SCH ×5 (00:25→23:51)
[2016-08-04] MEDS: METHADONE PO PRN (00:34)
[2016-08-04] MEDS: DILAUDID IV PRN ×2 (04:54→16:35)
[2016-08-04 06:45] LABS: HEMOGLOBIN 10.3 g/dL (12.0-16.0); MCH 27.1 PG (27-31); MCHC 32.2 g/dL (33-37); MCV 84.2 FL (81-99); MPV 8.2 FL (7.4-10.4); RBC 3.8 XMIL (4.2-5.4)
[2016-08-04] MEDS: MS CONTIN PO PRN (07:00)
[2016-08-04] MEDS: SYNTHROID PO SCH (07:00)
[2016-08-04 07:06] LABS: AGAP 16; ALBUMIN 2.9 g/dL (3.5-5.0); ALKALINE PHOSPHATASE 87 U/L (32-104); BUN 6 mg/dL (8-22); CHLORIDE 100 mmol/L (98-107); COSMO 272; GOT 16 U/L (10-30); GPT 18 U/L (10-36); SODIUM 137 mmol/L (136-145); TCO2 21 mmol/L (25-35); TOTAL PROTEIN 7.3 g/dL (6.3-8.3)
[2016-08-04] MEDS: NS 1,000 ML IV SCH ×2 (07:41→09:21)
[2016-08-04] MEDS: BENTYL PO SCH ×4 (07:41→16:35)
[2016-08-04] MEDS: ADVAIR 250/50 DISKUS INH SCH ×2 (08:11→20:15)
[2016-08-04] MEDS: SPIRIVA INH SCH (08:11)
[2016-08-04] MEDS: LYRICA PO SCH ×2 (09:22→20:32)
[2016-08-04] MEDS: COLACE PO SCH (09:22)
[2016-08-04] MEDS: CYMBALTA PO SCH ×2 (09:22→20:32)
[2016-08-04] MEDS: MIRALAX PO SCH (09:22)
[2016-08-04] MEDS: FORTICAL NAS SCH (09:23)
[2016-08-04] MEDS: MOVANTIK PO SCH (09:23)
[2016-08-04] MEDS: ASPIRIN EC PO SCH (09:23)
[2016-08-04] MEDS: CARDIZEM CD PO SCH (09:23)
[2016-08-04] MEDS: MULTI-VITAMIN PO SCH (09:23)
[2016-08-04] MEDS: HYDROXYZINE PO SCH (09:23)
[2016-08-04] MEDS: LIORESAL PO SCH ×3 (09:24→20:33)
[2016-08-04] MEDS ORDERED: KLOR-CON PO ONE (11:00)
[2016-08-04] MEDS: SODIUM CHLORIDE 0.9% INJ SCH (11:00)
[2016-08-04] MEDS: LOVENOX SUBQ SCH (11:00)
[2016-08-04] MEDS: PROTONIX IV SCH (11:00)
--- NOTE | 2016-08-04 12:37 | PROGRESS NOTE ---
DATE: 08/04/2016 SUBJECTIVE: The patient is resting quietly in bed. No complaints voiced. OBJECTIVE: Vital signs: Temperature is 98.8, pulse 82, respirations 18, blood pressure 118/57, saturating 95% to 96% on 3 L via nasal cannula. General: This is a 66-year- old female lying in the bed and answers questions appropriately. HEENT: Normocephalic and atraumatic. Pupils are equal, round and reactive to light. Extraocular movements were intact. The oropharynx and nares are clear. Neck: Supple. Lungs: Rhonchi, greater on the left than right. Equal lung expansion and chest wall movement. O2 via nasal cannula currently in use. Heart: Regular rate and rhythm. No murmurs, rubs or gallops. Abdomen: Soft, nontender and nondistended. Bowel sounds are present x4 quadrants. Extremities: No cyanosis, clubbing or edema. Neurologic: The cranial nerves II through XII are grossly intact. DIAGNOSTIC DATA: White blood cell count is 7.06, hemoglobin 10.3, hematocrit 32 , platelets 265. Sodium is 137, potassium 3.0, chloride 100, CO2 is 21, BUN is 6, creatinine 0.4 , glucose 115. Albumin is 2.9. She had an abdominal x-ray yesterday that showed constipation. A chest x-ray yesterday afternoon showed an increased infiltrate at the right lower lobe, increased atelectasis of right middle lobe. ASSESSMENT AND PLAN: 1. Supraventricular tachycardia. Continues to be in normal sinus rhythm, rate controlled on her Cardizem. We pursued a VQ scan, and it showed a lob probability for a PE. 2. Pneumonia. She is on day 3 of her Zosyn, so we will continue that treatment and follow. 3. Severe constipation with abdominal pain. The patient states she had a bowel movement yesterday. We will continue her bowel regimen. No further complaints of abdominal pain. 4. Lung cancer, currently on standby for treatment once discharged from the hospital with Dr. Polk. Attending is still in conversation with Dr. Polk concerning anticoagulation therapy at this time. We will recheck a CBC and CMP in the a.m. Dictated by BRITTNI Suh for Tito Blackwood MD ctsp due to hypoxia and svt, now resolved, had been off her O2, will add lasix and follow, resume xopenex if hr can tolerate, pt's hr was sinus tachycardia, will adjust rx and follow, cxr looks worse will repeat in am and follow APENOT MTDD
[2016-08-04] MEDS: XOPENEX NEB INH SCH ×2 (15:38→21:28)
[2016-08-04] MEDS ORDERED: LASIX IV ONE (15:44)
[2016-08-04] MEDS ORDERED: XOPENEX NEB INH SCH (16:00)
--- NOTE | 2016-08-04 17:46 | EKG Report ---
Test Performed on : 08/04/2016 3:20:48 PM Test Reason : SVT Blood Pressure : / mmHG Vent. Rate : 096 BPM Atrial Rate : 096 BPM P-R Int : 184 ms QRS Dur : 100 ms QT Int : 364 ms P-R-T Axes : 070 073 076 degrees QTc Int : 459 ms Normal sinus rhythm. Possible Left atrial enlargement Nonspecific ST abnormality Abnormal ECG When compared with ECG of 02-AUG-2016 11:07, (Unconfirmed) Vent. rate has decreased BY 49 BPM T wave inversion no longer evident in Inferior leads T wave inversion no longer evident in Anterolateral leads Unconfirmed Result
[2016-08-04] MEDS: CRESTOR PO SCH (20:33)
[2016-08-05] MEDS: XOPENEX NEB INH SCH ×4 (03:13→21:15)
[2016-08-05] MEDS: ZOSYN 3.375 GM/NS 50 ML IV SCH ×4 (05:36→23:15)
[2016-08-05] MEDS: MS CONTIN PO PRN ×2 (06:10→18:36)
[2016-08-05] MEDS: SYNTHROID PO SCH (06:10)
[2016-08-05 06:29] LABS: HEMATOCRIT 32.7 % (37.0-47.0); HEMOGLOBIN 10.7 g/dL (12.0-16.0); MCH 27.4 PG (27-31); MCHC 32.7 g/dL (33-37); MCV 83.6 FL (81-99); MPV 8.2 FL (7.4-10.4); RBC 3.91 XMIL (4.2-5.4)
[2016-08-05 06:39] LABS: AGAP 15; BUN 11 mg/dL (8-22); CALCIUM 8.9 mg/dL (8.8-10.2); CHLORIDE 97 mmol/L (98-107); COSMO 269; MAGNESIUM 1.6 mg/dL (1.5-2.7); POTASSIUM 3.3 mmol/L (3.5-5.1); SODIUM 134 mmol/L (136-145); TCO2 22 mmol/L (25-35)
[2016-08-05] MEDS: SPIRIVA INH SCH (08:00)
[2016-08-05] MEDS: FORTICAL NAS SCH (08:08)
[2016-08-05] MEDS: CYMBALTA PO SCH ×2 (08:11→20:18)
[2016-08-05] MEDS: COLACE PO SCH (08:11)
[2016-08-05] MEDS: ASPIRIN EC PO SCH (08:11)
[2016-08-05] MEDS: MULTI-VITAMIN PO SCH (08:11)
[2016-08-05] MEDS: LYRICA PO SCH ×2 (08:11→20:18)
[2016-08-05] MEDS: CARDIZEM CD PO SCH (08:11)
[2016-08-05] MEDS: HYDROXYZINE PO SCH (08:11)
[2016-08-05] MEDS: LIORESAL PO SCH ×3 (08:11→20:18)
[2016-08-05] MEDS: MOVANTIK PO SCH (08:12)
[2016-08-05] MEDS: MIRALAX PO SCH (08:13)
[2016-08-05] MEDS: DILAUDID IV PRN ×3 (08:32→22:38)
[2016-08-05] MEDS: ADVAIR 250/50 DISKUS INH SCH ×2 (09:04→20:04)
[2016-08-05] MEDS: PROTONIX IV SCH (12:11)
[2016-08-05] MEDS: SODIUM CHLORIDE 0.9% INJ SCH (12:11)
[2016-08-05] MEDS: METHADONE PO PRN (12:12)
[2016-08-05] MEDS: LOVENOX SUBQ SCH (12:12)
[2016-08-05] MEDS: NORCO-5 PO PRN (12:12)
--- NOTE | 2016-08-05 13:21 | Diag Imaging Result Document ---
PROCEDURE NAME: CHEST-2 VIEWS - 08/05/2016 PA AND LATERAL RADIOGRAPH OF THE CHEST: COMPARISON: 08/03/2016. FINDINGS: Given differences in inspiration, the dense infiltrate at the right lung base is approximately stable. No new consolidation is identified. Cardiac silhouette is stable. IMPRESSION: Stable chest.
--- NOTE | 2016-08-05 16:24 | PROGRESS NOTE ---
DATE: 08/05/2016 SUBJECTIVE: Patient is sitting up in the bed. No complaints voiced. OBJECTIVE: Vital signs: Temp 98.4 degrees, pulse 83, respirations 18, blood pressure 100/48, saturating 98% on 4 L via nasal cannula. General: This is a 66-year-old female who is lying in the bed and answers questions appropriately. HEENT: Normocephalic and atraumatic. Pupils are equal, round, reactive to light. Extraocular movements are intact. Oropharynx and nares are clear. Neck: Supple. Lungs: With decreased breath sounds to bilateral lower bases. Equal lung expansion and chest wall movement noted. Heart: With regular rate and rhythm. No murmurs, rubs, or gallops. Abdomen: Soft, nontender, nondistended. Bowel sounds are present x4 quadrants. Extremities: There is no clubbing, cyanosis, or edema. Neurological: The cranial nerves 2 through 12 appear grossly intact. LABORATORY DATA: Showed a white blood cell count of 9.10, hemoglobin 10.7, hematocrit 32.7, platelets 303,000. Sodium 134, potassium 3.3, chloride 97, CO2 22, BUN of 11, creatinine 0.6, glucose 121, magnesium 1.6. Chest x-ray this a.m. showed a stable chest. The dense infiltrate at the right lung base is approximately stable. No new consolidations identified. ASSESSMENT: 1. Supraventricular tachycardia. Continues to be in normal sinus rhythm. Controlled on her Cardizem. 2. Pneumonia. She is on day 4 of her Zosyn. Chest x-ray shows that it is stable currently with no worsening. We will continue her plan of care there. 3. Severe constipation with abdominal pain. We continue her bowel regimen. She has had no further complaints of abdominal pain. She has had positive bowel movement. 4. Lung cancer currently stable on her current treatment. She will follow up with Dr. Polk once she is discharged. 5. Hypokalemia. We will supplement and recheck labs in the a.m. Dictated by BRITTNI Suh for Tito Blackwood MD
[2016-08-05] MEDS: CRESTOR PO SCH (20:18)
--- NOTE | 2016-08-05 20:30 | Extremity Venous Study ---
PROCEDURE NAME: Venous U/S Bilateral Legs - 08/02/2016 BILATERAL LOWER EXTREMITY DOPPLER VENOUS ULTRASOUND: FINDINGS: The deep veins of bilateral lower extremities demonstrate flow with augmentation and compressibility. There are no filling defects identified. IMPRESSION: No evidence of deep venous thrombosis in either lower extremity.
[2016-08-06] MEDS: XOPENEX NEB INH SCH ×4 (03:48→21:21)
[2016-08-06 05:57] LABS: MANUAL DIFF NEEDED? NO
[2016-08-06 06:06] LABS: BASO% 0.5 % (0.0-0.8); EOS# 0.18 X1000 (0.0-0.7); EOS% 2.8 % (0.0-10.0); HEMATOCRIT 31.5 % (37.0-47.0); HEMOGLOBIN 10.1 g/dL (12.0-16.0); IMM GRAN# 0.04 X1000 (0.0-0.04); IMM GRAN% 0.6 % (0.0-0.5); LYMPH# 0.87 X1000 (1.2-3.4); LYMPH% 13.4 % (20.5-51.1); MCH 27.2 PG (27-31); MCHC 32.1 g/dL (33-37); MCV 84.9 FL (81-99); MONO# 0.57 X1000 (0.11-0.59); MONO% 8.8 % (1.7-9.3); MPV 8.1 FL (7.4-10.4); NEUT% 73.9 % (42.2-75.2); PLT 279 X1000 (130-400); RBC 3.71 XMIL (4.2-5.4)
[2016-08-06] MEDS: ZOSYN 3.375 GM/NS 50 ML IV SCH ×4 (06:14→22:53)
[2016-08-06] MEDS: SYNTHROID PO SCH (06:14)
[2016-08-06] MEDS ORDERED: NS 1,000 ML ONE (06:22)
[2016-08-06] MEDS: MS CONTIN PO PRN ×2 (06:25→17:30)
[2016-08-06 06:29] LABS: AGAP 9; ALBUMIN 2.9 g/dL (3.5-5.0); ALKALINE PHOSPHATASE 77 U/L (32-104); BUN 12 mg/dL (8-22); CALCIUM 8.7 mg/dL (8.8-10.2); CHLORIDE 100 mmol/L (98-107); COSMO 270; GOT 13 U/L (10-30); GPT 13 U/L (10-36); POTASSIUM 3.3 mmol/L (3.5-5.1); SODIUM 134 mmol/L (136-145); TCO2 25 mmol/L (25-35); TOTAL PROTEIN 7.3 g/dL (6.3-8.3)
[2016-08-06] MEDS: ADVAIR 250/50 DISKUS INH SCH ×2 (08:02→19:49)
[2016-08-06] MEDS: SPIRIVA INH SCH (08:02)
[2016-08-06] MEDS: DILAUDID IV PRN ×3 (08:34→20:31)
[2016-08-06] MEDS: FORTICAL NAS SCH (08:36)
[2016-08-06] MEDS: HYDROXYZINE PO SCH (08:37)
[2016-08-06] MEDS: MOVANTIK PO SCH (08:37)
[2016-08-06] MEDS: LYRICA PO SCH ×2 (08:37→20:23)
[2016-08-06] MEDS: COLACE PO SCH (08:38)
[2016-08-06] MEDS: MULTI-VITAMIN PO SCH (08:38)
[2016-08-06] MEDS: ASPIRIN EC PO SCH (08:38)
[2016-08-06] MEDS: CYMBALTA PO SCH ×2 (08:38→20:23)
[2016-08-06] MEDS: LIORESAL PO SCH ×3 (08:38→20:23)
[2016-08-06] MEDS: CARDIZEM CD PO SCH (08:38)
[2016-08-06] MEDS: MIRALAX PO SCH (09:11)
[2016-08-06] MEDS: METHADONE PO PRN (12:10)
[2016-08-06] MEDS: LOVENOX SUBQ SCH (12:10)
[2016-08-06] MEDS ORDERED: NS 1,000 ML IV SCH (12:15)
[2016-08-06] MEDS: SODIUM CHLORIDE 0.9% INJ SCH (12:16)
[2016-08-06] MEDS: PROTONIX IV SCH (12:16)
--- NOTE | 2016-08-06 16:27 | PROGRESS NOTE ---
DATE: 08/06/2016 SUBJECTIVE: Patient looks well. No major complaints. She looks like she is breathing comfortably. OBJECTIVE: Vital signs: Blood pressure 101/57, heart rate of 85, respiratory rate 20, temperature 98.3 degrees. She is 93% on 4 L; looks like she was on 3 L then. Cardiovascular: Regular rate and rhythm. Pulmonary: Bilateral breath sounds. Diminished at bases. No wheezing. GI: Soft, nontender, nondistended. Bowel sounds are positive. LABORATORY STUDIES: CBC looked okay. Hemoglobin and hematocrit of 10 and 31. Chemistries looked okay except for a potassium of 3.3. PROBLEM LIST: 1. Pneumonia. Clinically she has improved. She is currently on Zosyn but I think she could be transitioned and that is day 5. Transition to Augmentin at discharge, which I think could be as soon as tomorrow. 2. Supraventricular tachycardia. She seems to be stable on her current dose of Cardizem. Please note, that is an increased dose from her home dose. Anticoagulation may be a consideration. There was a question of PE on admission. However, her Dopplers were negative and her V/Q scan was negative. Just concerned about long-term anticoagulation in her but I would continue aspirin. 3. Chronic pain disorder. She seems to be okay and stable from that standpoint. 4. Constipation. I think she would benefit from discharging on Movantik because she does have, I think, opiate-induced constipation. Again, we are going to ambulate today, take out her Abel, and if stable likely home tomorrow.
[2016-08-06] MEDS: CRESTOR PO SCH (20:23)
[2016-08-06] MEDS ORDERED: BLISTEX MEDICATED BERRY LIP BALM TOP PRN (22:54)
[2016-08-07] MEDS: DILAUDID IV PRN ×2 (02:32→08:54)
[2016-08-07] MEDS: XOPENEX NEB INH SCH ×2 (03:21→07:55)
[2016-08-07] MEDS: ZOSYN 3.375 GM/NS 50 ML IV SCH (05:18)
[2016-08-07] MEDS: SYNTHROID PO SCH (06:18)
[2016-08-07] MEDS ORDERED: PROTONIX PO SCH (07:00)
[2016-08-07] MEDS: ADVAIR 250/50 DISKUS INH SCH (07:54)
[2016-08-07] MEDS: SPIRIVA INH SCH (07:55)
--- NOTE | 2016-08-07 08:19 | Diag Imaging Result Document ---
PROCEDURE NAME: HEAD W/WO CONTRAST - 08/01/2016 CT BRAIN WITH AND WITHOUT INTRAVENOUS CONTRAST: FINDINGS: No parenchymal hemorrhage. No epidural or subdural hematoma. No subarachnoid hemorrhage. No mass or midline shift. No enhancing lesion on the post contrasted images. No hydrocephalus. No sinus opacification. No air fluid levels. IMPRESSION: No hemorrhage or mass. A preliminary report was given at 9:54 p.m.
[2016-08-07] MEDS: HYDROXYZINE PO SCH (08:55)
[2016-08-07] MEDS: LYRICA PO SCH (08:55)
[2016-08-07] MEDS: COLACE PO SCH (08:55)
[2016-08-07] MEDS: CYMBALTA PO SCH (08:55)
[2016-08-07] MEDS: MULTI-VITAMIN PO SCH (08:55)
[2016-08-07] MEDS: CARDIZEM CD PO SCH (08:55)
[2016-08-07] MEDS: LIORESAL PO SCH (08:56)
[2016-08-07] MEDS: ASPIRIN EC PO SCH (08:56)
[2016-08-07] MEDS: MIRALAX PO SCH (08:57)
[2016-08-07] MEDS: FORTICAL NAS SCH (08:57)
[2016-08-07] MEDS ORDERED: AUGMENTIN PO SCH (09:00)
[2016-08-07 10:48] VITALS: BP 112/53
--- NOTE | 2016-08-08 12:05 | DISCHARGE SUMMARY ---
ADMISSION DATE: 08/02/2016 DISCHARGE DATE: 08/07/2016 DIAGNOSES: 1. Pneumonia. 2. Supraventricular tachycardia, resolved. 3. Chronic pain disorder. 4. Constipation, secondary to chronic opiate use. 5. Questionable pulmonary embolus, which was ruled out on a ventilation-perfusion scan 08/03/2016. 6. Lung cancer which is followed by Dr. Polk. DIAGNOSTICS: 1. On 08/01/2016, pulmonary arteriogram revealed a right basilar lung mass and severe mediastinal and right hilar lymphadenopathy. Emphysema. Extensive air-space consolidation at the mid and lower lung zone on the right. Minimal consolidation on the left suggesting pneumonia and pneumonitis. A questionable filling defect in the distal branches of the pulmonary arteries bilaterally at the bases, which could indicate small distal pulmonary emboli. However, there is excessive motion artifact in this region. 2. On 08/01/2016, CT of the head revealed no hemorrhage or mass. 3. On 08/02/2016, bilateral lower extremity Doppler revealed no evidence of DVT in either lower extremity. 4. On 08/02/2016, echocardiogram revealed normal LV systolic function with an estimated EF of 65% with normal wall motion. No pericardial effusion seen. 5. On 08/03/2016, VQ lung scan revealed low probability for pulmonary embolus. 6. On 08/03/2016, abdominal x-ray revealed constipation. 7. On 08/03/2016, chest x-ray revealed increased right lower lobe infiltrate. Increased atelectasis at the right middle lobe. 8. On 08/05/2016, revealed no new consolidation, stable chest. MICROBIOLOGY: Blood cultures x2, no growth after 48 hours. Urine culture no pathogenic growth. HOSPITAL COURSE: Ms. Block presented to the emergency room, complaining of shortness of breath and altered mental status. She was felt to be in SVT. She did have heart rates as high as 140 in the emergency room. This was paroxysmal. She was found to have pneumonia on the right side with a loculated pleural effusion to the right lower lobe, as well as questionable filling defects which could be small pulmonary emboli, although there was movement. Blood cultures were obtained which revealed no growth. She was given Zosyn for postobstructive pneumonia. VQ scan revealed no pulmonary emboli. Lower extremity Doppler bilateral revealed no DVT. As stated before, she did have some paroxysmal SVT during the 1st 12 or 15 hours of being in the hospital. She has had no further recurrence. She did have constipation. She did have what looks like 2 stools while in the hospital. We did continue her appropriate home medications along with breathing treatments and oxygen therapy. She did progress. Today she has no complaints and she wishes to go home. PHYSICAL EXAMINATION: Cardiovascular: Regular rate and rhythm S1, S2 appreciated. Pulmonary: Breath sounds are diminished at the bases with equal chest expansion and no increased work of breathing. Gastrointestinal: Abdomen is soft, nontender, nondistended with bowel sounds in all 4 quadrants. Back: No CVAT. No spine tenderness. Extremities: No clubbing, cyanosis, or edema. Calves nontender. Pulses are palpable x4. Discharge Vital Signs: Blood pressure is 112/53 with a heart rate of 80, respirations 18, temperature 97.6 oral with room air saturations of 95%. DISCHARGE ACTIVITY: As tolerated. DISCHARGE MEDICATIONS: Augmentin 875 mg p.o. q.12 hours. Cardizem CD 180 mg daily, Movantik 12.5 p.o., Protonix 40 mg daily. Lyrica 25 mg b.i.d., Crestor 10 at bedtime, Spiriva 1 puff daily. Colace 300 daily, Cymbalta 60 b.i.d., Nexium 20 at bedtime. Advair 250-50 b.i.d. Ackerman 5 b.i.d. p.r.n., hydroxyzine 25 daily, Synthroid 50 mcg daily, lisinopril 5 at bedtime. Glucophage 500 b.i.d., methadone 10 daily, morphine 100 b.i.d. p.r.n., multivitamins 1 daily. Enteric-coated aspirin 81 mg daily, baclofen 10 mg at 9, 3 and 9. Bentyl 10 mg t.i.d. FOLLOW UP: 1. She is to follow up with her primary care physician, Dr. Levin in 1-[address] Polk as scheduled. DISPOSITION: She is being discharged home in stable condition with family members. TIME SPENT: This is a greater than 30 minute discharge from 8:00 to 8:35. Dictated by BRITTNI Manzanares for Ronnell De Paz MD
--- NOTE | 2016-08-19 14:32 | DISCHARGE SUMMARY ---
ADMISSION DATE: 08/02/2016 DISCHARGE DATE: 08/07/2016 DISCHARGE SUMMARY ADDENDUM: The patient was discharged with postobstructive pneumonia with a known history of lung cancer. She was treated with Zosyn. She was discharged home on Augmentin as noted on the previous discharge summary. Culture did not grow anything and therefore cannot be delineated whether this was Haemophilus influenzae, Streptococcus pneumoniae or any other type of pneumonia other than what she was treated for.
== END 2016-08-07 12:18 | disposition home or self-care (01) | DRG 190 ==
LOC: P.ED 17:34 → P.ICU 08-02 → P.MEDSURG 08-03 18:28
PROVIDERS: ATTEND Family Medicine
DX: J44.0 Chronic obstructive pulmonary disease with (acute) lower respiratory infection (principal); J18.9 Pneumonia, unspecified organism; J90 Pleural effusion, not elsewhere classified; Z99.81 Dependence on supplemental oxygen; C34.31 Malignant neoplasm of lower lobe, right bronchus or lung; J45.909 Unspecified asthma, uncomplicated; I47.1 Supraventricular tachycardia; F17.210 Nicotine dependence, cigarettes, uncomplicated; E87.6 Hypokalemia; G89.29 Other chronic pain; K59.03 Drug induced constipation; T40.2X5A Adverse effect of other opioids, initial encounter; Z79.899 Other long term (current) drug therapy; Z79.82 Long term (current) use of aspirin; Z79.84 Long term (current) use of oral hypoglycemic drugs; Z79.51 Long term (current) use of inhaled steroids
CPT/HCPCS: 36415; 70450; 70460; 70470; 71020; 71275; 74000; 78582; 80048; 80053; 81001; 82550; 82553; 83735; 83880; 84484; 85025; 85027; 85379; 85610; 85730; 87040; 87088; 93005; 93010; 93306; 93970; 94640; 94761; A9539; A9540; C9113; J0696; J1170; J1650; J1940; J2270; J2405; J2543; J7030; Q9967; S0109; S0164

== ENCOUNTER 2016-08-12 18:14 | Inpatient (IN) | payer OTHER ==
--- NOTE | 2016-08-12 18:53 | PROVIDER DOCUMENTATION ---
HPI-General Adult - General Source: patient - History of Present Illness -Gen Adult Nature of Presenting Problems: 66 year old F presents to the ED with a cc of dizziness, confusion, right sided chest pain, and shortness of breath. Pt states that she has had these symptoms before but today they are much worse. Pt has lung cancer metastisised to lumbar spine, left lower leg, liver, and lymph nodes. Daughter states that she has been getting worse over the last week. PT was admitted on the for a pulmonary embolism and pneumonia. Daughter states that pt has been coughing up dark yellow sputum. PT states today she has had some nausea and ABD pain. Daughter states that pt is having a hard time urinating but then has episodes of incontinence. Location of Pain/Injury: reports: generalized Pain Radiation: reports: no radiation Quality of Pain: reports: aching Severity: reports: mild Timing: reports: still present Context/Activities at Onset: reports: none Associated Symptoms: reports: chest pain, dizziness, muscle aches, shortness of breath, other (confusion) Similar Symptoms Previously?: Yes Recently seen or treated by another doctor?: Yes <Izzy Carter - Last Filed: 08/12/16 20:36> <Jonatan Joseph - Last Filed: 08/12/16 23:08> - General Chief Complaint: Return/Recheck Stated Complaint: RECHECK Time Seen by Provider: 08/12/16 18:44 Allergies/Adverse Reactions: Patient Allergies Allergy/AdvReac Type Severity Reaction Status Date / Time iodine Allergy Severe SWELLING Verified 06/19/16 20:27 lamotrigine [From Lamictal] Allergy Severe RASH Verified 06/19/16 20:27 niacin Allergy Severe RASH Verified 06/19/16 20:27 shellfish derived Allergy Severe SWELLING Verified 06/19/16 20:27 salicylates Allergy Unknown Unknown Verified 06/19/16 20:27 levofloxacin [From Levaquin] Allergy SITE Verified 06/19/16 20:27 SWELLING WITH RASH Home Medications: Home Medication List Medication Instructions Recorded Confirmed Last Taken Type Aspirin [Aspirin EC] 81 mg PO DAILY 03/20/13 08/02/16 09/16/15 01:00 History Dicyclomine [Bentyl] 10 mg PO TID 03/20/13 08/02/16 08/26/15 History Duloxetine [Cymbalta] 60 mg PO BID 03/20/13 08/02/16 09/16/15 01:00 History Lisinopril 5 mg PO HS 03/20/13 08/02/16 09/16/15 01:00 History ROSUVAstatin [Crestor] 10 mg PO QHS 03/20/13 08/02/16 09/16/15 01:00 History Metformin [Glucophage] 500 mg PO BID CC 06/15/13 08/02/16 09/15/15 15:00 History Levothyroxine [Synthroid] 50 microgm PO DAILY 06/16/14 08/02/16 09/15/15 05:00 History Albuterol Sulfate [Proair 2 puff IH Q6H PRN PRN 03/25/15 08/02/16 09/15/15 11: 00 History Respiclick] Calcitonin,[place],Synthetic 1 spray NS DAILY 03/25/15 08/02/16 09/16/15 01:00 History [Calcitonin-[place]] Docusate Sodium [Colace] 300 mg PO DAILY 03/25/15 08/02/16 09/16/15 01:00 History Fluticasone/Salmeterol [Advair 1 puff IH BID 03/25/15 08/02/16 09/16/15 01:00 History 250-50 Diskus] Multivitamin [Multivitamins] 1 each PO DAILY 03/25/15 08/02/16 09/16/15 01:00 History Esomeprazole Magnesium [Nexium] 20 mg PO HS 09/16/15 08/02/16 09/16/15 01:00 History Baclofen [Lioresal] 10 mg PO TID@0900,1500,2100 #30 10/12/15 08/02/16 Unknown Rx tablet Tiotropium [place] Inhaler 1 puff INH RTDAILY #1 inhaler 10/12/15 08/02/16 Unknown Rx [Spiriva] Hydrocodone/APAP 5 mg/325 mg 1 each PO BID PRN PRN 02/27/16 08/02/16 Unknown History [[place]-5] Hydroxyzine 25 mg PO DAILY 02/27/16 08/02/16 Unknown History Methadone 10 mg PO DAILY PRN PRN 02/27/16 08/02/16 Unknown History Morphine Sulfate 100 mg PO BID PRN PRN 02/27/16 08/02/16 Unknown History Pregabalin [Lyrica] 25 mg PO BID 02/27/16 08/02/16 Unknown History Amoxicillin/Pot Clavulanate 875 mg PO Q12HR #10 tablet 08/07/16 Unknown Rx [Augmentin] Diltiazem C.d. [Cardizem Cd] 180 mg PO DAILY #30 capsule 08/07/16 Unknown Rx Naloxegol Oxalate [Movantik] 12.5 mg PO ACB #30 tablet 08/07/16 Unknown Rx Pantoprazole [Protonix] 40 mg PO DAILY@07 #30 tablet 08/07/16 Unknown Rx Review of Systems - Adult - REVIEW OF SYSTEMS - ADULT Constitutional: denies: chills, fever Eyes: reports: no symptoms reported Ears, Nose, Mouth & Throat: reports: no symptoms reported Cardiovascular: reports: chest pain. denies: palpitations Respiratory: reports: shortness of breath. denies: cough Gastrointestinal: denies: diarrhea, nausea, vomiting Genitourinary: reports: no symptoms reported Musculoskeletal: reports: bone pain, muscle aches. denies: muscle weakness Integumentary: denies: skin sores/ulcer, skin thickening Neurological: reports: no symptoms reported Psychiatric: reports: no symptoms reported Endocrine: reports: no symptoms reported Hematologic/Lymphatic: reports: no symptoms reported Allergic/Immunologic: reports: no symptoms reported All Other Systems: Reviewed and Negative <Izzy Carter - Last Filed: 08/12/16 20:36> Past History - Adult - PAST MEDICAL HISTORY-ADULT Review of Records: reports: Nursing Assessment Review, Medications Reviewed Major Childhood Illnesses: reports: denies history Cardiovascular: reports: HTN, other (AAA) Respiratory: reports: asthma, COPD Gastrointestinal: reports: denies history Obstetrical/Gynecological: reports: denies history Genitourinary: reports: denies history Musculoskeletal: reports: denies history Neurological: reports: denies history Psychiatric: reports: anxiety Endocrine/Immune: reports: denies history, Diabetes Other Conditions: reports: denies history - PRIOR SURGERIES/PROCEDURES Surgical/Procedure History: reports: reviewed, not pertinent, hysterectomy, other (AAA,bladder tach) - IMMUNIZATION STATUS Childhood Immunizations: See Nurse Assessment Flu Vaccine: See Nurse Assessment - FAMILY HISTORY Family History: reviewed, not pertinent - SOCIAL HISTORY Smoking: cigarettes, greater than 1 pack/day Provider spent 3-5 mins advising pt. on dangers of tobacco.: Discussed manners to quit use, and f/u contacts for add'l counseling. Substance Use: none/never Alcohol Use Frequency: never <Izzy Carter - Last Filed: 08/12/16 20:36> Physical Exam-General - PHYSICAL EXAM-ADULT Initial Vital Signs Reviewed: Yes - CONSTITUTIONAL General Appearance: appears well, alert, no apparent distress - HEAD, EARS, NOSE, MOUTH & THROAT HENMT: other (semi-moist mucous membranes) - RESPIRATORY Respiratory: chest non-tender, decreased breath sounds, rhonchi (right greater than left) - CARDIOVASCULAR Cardiovascular: normal peripheral pulses, regular rate, rhythm, no edema - GASTROINTESTINAL (ABDOMEN) Abdominal Exam: normal bowel sounds, soft, tenderness (mild generalized) - MUSCULOSKELETAL Back Exam: vertebral tenderness (lower lumbar) Extremity: pedal edema (2+ bilateral ankle) - SKIN Integumentary: normal color, normal turgor, warm/dry - NEUROLOGIC Neurologic: surgical tech II-XII nml as tested, no motor/sensory deficits - PSYCHIATRIC Psych/Mental Status: normal mood/affect, normal thought content, normal thought process, oriented x 3 <Izzy Carter - Last Filed: 08/12/16 20:36> Progress - EKG 1 Time of EKG reading by physician:: 19:16 EKG Read and Signed by:: Jonatan Joseph EKG Interpretation (*Must complete 3 of following elements*): Abnormal Rate: 83 Rhythm: NSR ST Wave: non-specific ST changes Comments: prolonged QT - XRAY 1 XRAY Study: Chest Impression: Abnormal XRAY Interpretation: no acute changes, right lung mass: Dr. Joseph- ER <Izzy Carter - Last Filed: 08/12/16 20:36> - CT/MRI 1 CT Study: Thorax (improved pneumonia,stable neoplastic changes, apparent distal emboli in both lower lobes) - CONSULTS/PCP/HOSPITALIST Notification #1 *Consult/PCP/Hospitalist*: dr. De Paz Time Discussed: 22:55 Consult Disposition: Admit <Jonatan Joseph - Last Filed: 08/12/16 23:08> Departure <Izzy Carter - Last Filed: 08/12/16 20:36> - Departure Time of Disposition Order: 23:10 Certified Medical Emergency: Emergent <Jonatan Joseph - Last Filed: 08/12/16 23:08> - Departure DIAGNOSIS: Pulmonary embolism, bilateral, Chronic obstructive lung disease Metastatic lung cancer (metastasis from lung to other site) Qualifiers: Laterality: right Qualified Code(s): C34.91 - Malignant neoplasm of unspecified part of right bronchus or lung Disposition: ADMITTED INPATIENT 09 Condition: Stable Referrals: Renny Dillard MD [Primary Care Provider] - Attestation - Scribe Verification/Attestation Scribe:: Izzy Carter Acting as Scribe for:: Jonatan Joseph Scribe documention review:: This chart was documented by a scribe and accurately reflects the service the provider performed and the decisions made by the provider. <Izzy Carter - Last Filed: 08/12/16 20:36> Physician Attestation - Physician Attestation I, the provider, attest to the following statement:: Jonatan Joseph Physician documentation Attestation:: This documentation recorded by the scribe accurately reflects the service I personally performed and the decisions made by me. <Izzy Carter - Last Filed: 08/12/16 20:36>
[2016-08-12 19:13] LABS: MANUAL DIFF NEEDED? NO
[2016-08-12 19:29] LABS: URINE CULTURE PL NEEDED? NO; URINE SOURCE CLEAN CATCH
[2016-08-12 19:30] LABS: BASO% 0.5 % (0.0-0.8); EOS# 0.27 X1000 (0.0-0.7); EOS% 2.9 % (0.0-10.0); HEMATOCRIT 30.3 % (37.0-47.0); HEMOGLOBIN 9.8 g/dL (12.0-16.0); IMM GRAN# 0.01 X1000 (0.0-0.04); IMM GRAN% 0.1 % (0.0-0.5); LYMPH# 1.52 X1000 (1.2-3.4); LYMPH% 16.4 % (20.5-51.1); MCH 27.4 PG (27-31); MCHC 32.3 g/dL (33-37); MCV 84.6 FL (81-99); MONO# 0.69 X1000 (0.11-0.59); MONO% 7.4 % (1.7-9.3); MPV 8.4 FL (7.4-10.4); NEUT% 72.7 % (42.2-75.2); PLT 433 X1000 (130-400); RBC 3.58 XMIL (4.2-5.4)
[2016-08-12 19:33] LABS: BE 0.1 mmoll (-3.0-3.0); BLOOD TYPE ARTERIAL; DRAW SITE L BRACHIAL; METHB 0.7 % (0.0-1.5); O2(CT) 12.3 mL/dL (15.0-23.0); PCO2(98.6) 39 mmHg (35-45); PO2(98.6) 60 mmHg (60-100); SAMPLE BLOOD; SAO2 93.5 % (95.0-100.0); THB 10.1 g/dL (11.5-17.4); pH(98.6) 7.41 (7.35-7.45)
[2016-08-12 19:41] LABS: ALLEN TEST NO; MODALITY ROOM AIR
[2016-08-12 19:42] LABS: BILIRUBIN URINE NEGATIVE (NEGATIVE); BLOOD URINE NEGATIVE (NEGATIVE); CLARITY SL. CLOUDY (CLEAR); COLOR YELLOW; GLUCOSE URINE NEGATIVE (NEGATIVE); LEUKOCYTES URINE NEGATIVE (NEGATIVE); NITRITE URINE NEGATIVE (NEGATIVE); PROTEIN URINE NEGATIVE (NEGATIVE); SP GRAVITY URINE 1.005; UROBILINOGEN URINE NORMAL
[2016-08-12 19:48] LABS: INR 1.15 (0.86-1.15)
[2016-08-12 19:48] LABS: URINE EPITHELIAL CELLS <10 /HPF (<10)
[2016-08-12 19:49] LABS: PTT PL 35.6 Seconds (22.6-43.9)
[2016-08-12 19:58] LABS: AGAP 13; ALBUMIN 3.3 g/dL (3.5-5.0); ALKALINE PHOSPHATASE 99 U/L (32-104); BUN 17 mg/dL (8-22); CALCIUM 9.1 mg/dL (8.8-10.2); CHLORIDE 95 mmol/L (98-107); CK PROFILE 112 U/L (24-173); COSMO 265; GOT 23 U/L (10-30); GPT 16 U/L (10-36); POTASSIUM 4.3 mmol/L (3.5-5.1); SODIUM 129 mmol/L (136-145); TCO2 21 mmol/L (25-35); TOTAL PROTEIN 7.9 g/dL (6.3-8.3)
[2016-08-12] MEDS ORDERED: NORCO-7.5 PO ONE (22:30)
[2016-08-12] MEDS ORDERED: LOVENOX 1 MG/KG SUBQ SCH (23:00)
[2016-08-12] MEDS ORDERED: MORPHINE IV PRN (23:01)
[2016-08-12] MEDS ORDERED: ZOFRAN IV PRN (23:01)
[2016-08-12] MEDS ORDERED: DUONEB (A & A) INH SCH (23:15)
[2016-08-12] MEDS ORDERED: LOVENOX ONE (23:22)
[2016-08-13] MEDS: LOVENOX SUBQ SCH ×3 (01:23→23:04)
--- NOTE | 2016-08-13 05:07 | EKG Report ---
Test Performed on : 08/12/2016 7:16:26 PM Test Reason : CHEST PAIN Blood Pressure : / mmHG Vent. Rate : 083 BPM Atrial Rate : 083 BPM P-R Int : 180 ms QRS Dur : 102 ms QT Int : 454 ms P-R-T Axes : 081 076 092 degrees QTc Int : 533 ms Normal sinus rhythm. Possible Left atrial enlargement T wave abnormality, consider anterolateral ischemia Prolonged QT Abnormal ECG When compared with ECG of 04-AUG-2016 15:20, (Unconfirmed) Nonspecific T wave abnormality now evident in Inferior leads T wave inversion now evident in Anterolateral leads QT has lengthened Unconfirmed Result
--- NOTE | 2016-08-13 05:08 | EKG Report ---
Test Performed on : 08/12/2016 10:34:52 PM Test Reason : rhythm change, hr 140 Blood Pressure : / mmHG Vent. Rate : 092 BPM Atrial Rate : 092 BPM P-R Int : 214 ms QRS Dur : 094 ms QT Int : 366 ms P-R-T Axes : 072 064 078 degrees QTc Int : 452 ms Sinus rhythm. with 1st degree AV block. Possible Left atrial enlargement ST & T wave abnormality, consider inferior ischemia Abnormal ECG When compared with ECG of 12-AUG-2016 19:16, (Unconfirmed) MO interval has increased Inverted T waves have replaced nonspecific T wave abnormality in Inferior leads Nonspecific T wave abnormality has replaced inverted T waves in Anterolateral leads QT has shortened Unconfirmed Result
[2016-08-13] MEDS ORDERED: BENTYL PO PRN (06:11)
--- NOTE | 2016-08-13 08:23 | Diag Imaging Result Document ---
PROCEDURE NAME: CHEST-2 VIEWS - 08/12/2016 FRONTAL AND LATERAL CHEST, TWO VIEWS: COMPARISON: 08/05/2016. FINDINGS: The lungs are well expanded. There are increased interstitial markings in the mid and lower right lung. These are less pronounced than on the prior study. Tiny pleural effusions remain. Right suprahilar adenopathy remains with no change. Increased AP diameter to the chest. IMPRESSION: 1. Interval improvement in the right lung infiltrates. 2. Emphysema. 3. Mediastinal adenopathy. 4. Tiny effusions.
[2016-08-13] MEDS: ADVAIR 250/50 DISKUS INH SCH ×2 (08:42→20:00)
[2016-08-13] MEDS: SPIRIVA INH SCH (08:42)
[2016-08-13] MEDS: CYMBALTA PO SCH ×2 (09:00→20:45)
[2016-08-13] MEDS: CARDIZEM CD PO SCH (09:01)
[2016-08-13] MEDS: COLACE PO SCH (09:01)
[2016-08-13] MEDS: MULTI-VITAMIN PO SCH (09:01)
[2016-08-13] MEDS: LIORESAL PO SCH ×3 (09:01→20:46)
[2016-08-13] MEDS: PROTONIX PO SCH (09:02)
[2016-08-13] MEDS: LYRICA PO SCH ×2 (09:02→20:46)
[2016-08-13] MEDS: SYNTHROID PO SCH (09:02)
[2016-08-13] MEDS: GLUCOPHAGE PO SCH ×2 (09:07→16:02)
[2016-08-13] MEDS: MS CONTIN PO PRN ×2 (09:13→22:31)
[2016-08-13] MEDS: AUGMENTIN PO SCH ×2 (09:13→20:45)
--- NOTE | 2016-08-13 09:40 | Diag Imaging Result Document ---
PROCEDURE NAME: ANGIOGRAM/PULMONARY ARTERIES - 08/12/2016 CT ANGIOGRAM PULMONARY ARTERIES WITH CONTRAST: TECHNIQUE: Exam performed with intravenous contrast. A dose reduction protocol was used. Axial and reformatted coronal images are obtained. Compared with 08/01/2016. FINDINGS: There are right lower lung mass and right hilar and mediastinal adenopathy similar to the previous exam. There has been interval decrease in infiltrates compared to the previous exam. There is no pleural effusion or pneumothorax identified. There are no large or central pulmonary artery filling defects identified. There are questionable small peripheral pulmonary artery filling defects at the bilateral lower lobes versus artifacts, similar to the previous exam. IMPRESSION: 1. Right lower lung mass and right hilar mediastinal adenopathy similar to the previous exam, compatible with malignancy. 2. Overall improvement in pneumonia compared to previous exam. 3. Questionable small peripheral pulmonary emboli at bilateral lower lobes versus artifacts similar to the previous exam. There are no central pulmonary emboli identified. The on-call radiologist provided preliminary results at 10:06 p.m. on 2016. [facility]ANES[facility]
[2016-08-13 09:47] LABS: AGAP 14; BUN 15 mg/dL (8-22); CALCIUM 9.4 mg/dL (8.8-10.2); CHLORIDE 96 mmol/L (98-107); COSMO 268; POTASSIUM 4.4 mmol/L (3.5-5.1); SODIUM 132 mmol/L (136-145); TCO2 22 mmol/L (25-35)
[2016-08-13] MEDS ORDERED: CARDIZEM 100 MG/NS 100 ML ONE (10:03)
--- NOTE | 2016-08-13 10:05 | EKG Report ---
Test Performed on : 08/13/2016 09:48:33 AM Test Reason : elevated HR Blood Pressure : / mmHG Vent. Rate : 163 BPM Atrial Rate : 163 BPM P-R Int : 132 ms QRS Dur : 086 ms QT Int : 238 ms P-R-T Axes : 056 074 230 degrees QTc Int : 391 ms Sinus tachycardia. Marked ST abnormality, possible anterolateral subendocardial injury Abnormal ECG When compared with ECG of 12-AUG-2016 22:34, MD interval has decreased Vent. rate has increased BY [address] now depressed in Inferior leads ST now depressed in Lateral leads Inverted T waves have replaced nonspecific T wave abnormality in Anterolateral leads Unconfirmed Result
[2016-08-13] MEDS: NS 1,000 ML IV SCH ×2 (11:03→22:09)
[2016-08-13] MEDS: MORPHINE IV PRN ×4 (11:03→23:04)
[2016-08-13] MEDS: MOVANTIK PO SCH (11:13)
[2016-08-13] MEDS: CARDIZEM 100 MG/NS 100 ML IV SCH (11:15)
--- NOTE | 2016-08-13 12:22 | HISTORY AND PHYSICAL ---
PRIMARY CARE PHYSICIAN: Dr. Renny Dillard. ONCOLOGIST: Dr. Polk. CHIEF COMPLAINT: Dizziness, confusion, right-sided chest pain and shortness of breath. HISTORY OF PRESENTING ILLNESS: This is a 66-year-old female who was admitted to this facility on 08/02/2016 through to 08/07/2016 with a pneumonia, an SVT that was resolved. She had a questionable pulmonary emboli which was ruled out on a ventilation perfusion scan on 08/03/2016 and was recently diagnosed with lung cancer and followed by Dr. Polk. She presents with complaints at the ER of dizziness, confusion, right-sided chest pain and shortness of breath. Workup in the ER showed a D-dimer of 2.82 showed a sodium of 129. Chest x-ray showed interval improvement of the right lung infiltrate, emphysema, mediastinal adenopathy and tiny effusions. According to ER documentation by the MD, she had a CT of the thorax that showed apparent distal emboli in both lower lobes. Radiology read CTA is pending, but she was admitted for bilateral PE and for further evaluation and treatment. PAST MEDICAL HISTORY: 1. Lung cancer that has metastasized to her lumbar spine, left lower leg, liver and lymph nodes. 2. COPD with home O2. 3. AAA and SVT. PAST SURGICAL HISTORY: 1. Hysterectomy. 2. Bladder tack. 3. AAA repair. FAMILY HISTORY: Noncontributory. SOCIAL HISTORY: She currently lives with her daughter. Smokes 1 pack of cigarettes a day and has done so for the past 40 years, and denied any alcohol or illicit drug use. ALLERGIES: 1. Iodine. 2. Lamictal. 3. Niacin. 4. Shellfish derived. 5. Salicylates. 6. Levaquin. HOME MEDICATIONS: 1. She was taking Augmentin 875 mg p.o. q.12 h. We will continue. 2. Glucophage 500 mg p.o. b.i.d. 3. Aspirin 81 mg p.o. daily. We are going to hold the aspirin as she has listed salicylates as an allergy. I will verify that, but for now we will hold the aspirin. 4. Methadone 10 mg p.o. daily p.r.n. is being held. 5. ProAir 2 puffs inhalation q.6 hours p.r.n. 6. Baclofen 10 mg p.o. t.i.d. 7. Bentyl 10 mg p.o. p.r.n. 8. Cardizem CD 180 mg p.o. daily. 9. Colace 300 mg p.o. daily. 10. Cymbalta 60 mg p.o. b.i.d. 11. Nexium 20 mg p.o. at bedtime. 12. Advair 250/50 [place] 1 puff inhalation b.i.d. 13. [place] 5 one p.o. b.i.d. p.r.n. 14. Synthroid 50 mcg p.o. daily. 15. Lisinopril 5 mg p.o. at bedtime. 16. Morphine sulfate 100 mg p.o. b.i.d. p.r.n. 17. Multivitamin 1 p.o. daily. 18. Movantik 12.5 mg p.o. a.c. breakfast. 19. Protonix 40 mg p.o. daily. 20. Lyrica 25 mg p.o. b.i.d. 21. Crestor 10 mg p.o. at bedtime. 22. Spiriva 1 inhalation daily. LABORATORY DATA: Showed a white blood cell count of 9.27, hemoglobin 9.8, hematocrit 30.3, platelets 433,000. PT and INR of 15.0 and 1.15. D-dimer of 2.82. ABG with a pH of 7.41, pCO2 39, PO2 60, bicarb 24.8. Sodium 129, potassium 4.3, chloride 95, CO2 21, BUN of 17, creatinine 0.8, glucose 179, magnesium of 2. Creatine kinase of 112, troponin x3 sets were less than 0.010. ProBNP was 61. Urinalysis was negative. Chest x-ray showed interval improvement in the right lung infiltrate, emphysema, mediastinal adenopathy and tiny effusions. Per ER interpretation of her CT of the thorax, chest showed improved pneumonia, stable neoplastic changes and an apparent distal emboli in both lower lobes. EKG showed sinus rhythm with a first-degree AV block at 92. REVIEW OF SYSTEMS: She was positive for dizziness, confusion, shortness of breath, right-sided chest pain. Denied any fever, chills, blurred vision, abdominal pain, constipation, diarrhea, burning or hurting with urination. PHYSICAL EXAMINATION: On arrival showed a temperature of 98 degrees, pulse was 93, respirations 18, blood pressure 105/63, was saturating 92% on room air. Currently 95-96% on 2 L via nasal cannula. GENERAL: This is a 66-year-old female who is lying in the bed, answers questions appropriately. HEENT: Normocephalic and atraumatic. Pupils are equal, round, reactive to light. Extraocular movements are intact. Oropharynx and nares are clear. NECK: Supple. LUNGS: Clear to auscultation bilaterally with equal lung expansion and chest wall movement. HEART: With regular rate and rhythm. No murmurs, rubs, or gallops. ABDOMEN: Soft, nontender, nondistended. Bowel sounds are present x4 quadrants. EXTREMITIES: There is no clubbing, cyanosis, or edema. NEUROLOGICAL: The cranial nerves 2-12 are grossly intact. ASSESSMENT: 1. Bilateral pulmonary emboli. 2. Hyponatremia. 3. Chronic obstructive pulmonary disease, history of. 4. Tobacco abuse. PLAN: She has been admitted to the medical unit at [facility]. Placed on telemetry. Healthy heart diet. Continue her home medications as previously identified. Place on Lovenox 1 mg/kg subcutaneous q.12 hours and we will recheck a CBC, CMP today and in the a.m. and we will start normal saline at 75 mL an hour. Dictated by BRITTNI Suh for Ronnell De Paz MD
[2016-08-13] MEDS: CRESTOR PO SCH (20:45)
[2016-08-13] MEDS ORDERED: PRINIVIL PO SCH (21:00)
[2016-08-13] MEDS ORDERED: NEXIUM PO SCH (21:00)
[2016-08-14] MEDS: MORPHINE IV PRN ×10 (01:11→22:36)
[2016-08-14] MEDS: CARDIZEM 100 MG/NS 100 ML IV SCH (01:11)
[2016-08-14] MEDS: SYNTHROID PO SCH (06:05)
[2016-08-14] MEDS: PROTONIX PO SCH (06:05)
[2016-08-14 06:10] LABS: MANUAL DIFF NEEDED? NO
[2016-08-14 06:21] LABS: BASO% 1.2 % (0.0-0.8); EOS# 0.14 X1000 (0.0-0.7); EOS% 2.5 % (0.0-10.0); HEMOGLOBIN 10.8 g/dL (12.0-16.0); IMM GRAN# 0.01 X1000 (0.0-0.04); IMM GRAN% 0.2 % (0.0-0.5); LYMPH# 1.17 X1000 (1.2-3.4); LYMPH% 20.6 % (20.5-51.1); MCH 27.7 PG (27-31); MCHC 31.8 g/dL (33-37); MCV 87.2 FL (81-99); MONO# 0.52 X1000 (0.11-0.59); MONO% 9.1 % (1.7-9.3); MPV 8.9 FL (7.4-10.4); NEUT% 66.4 % (42.2-75.2); PLT 435 X1000 (130-400)
[2016-08-14 06:36] LABS: AGAP 9; BUN 11 mg/dL (8-22); CALCIUM 9.6 mg/dL (8.8-10.2); CHLORIDE 101 mmol/L (98-107); COSMO 273; POTASSIUM 4.2 mmol/L (3.5-5.1); SODIUM 136 mmol/L (136-145); TCO2 26 mmol/L (25-35)
[2016-08-14] MEDS: GLUCOPHAGE PO SCH ×2 (07:17→16:05)
[2016-08-14] MEDS: ADVAIR 250/50 DISKUS INH SCH ×2 (08:00→23:01)
[2016-08-14] MEDS: VENTOLIN HFA INH PRN (08:00)
[2016-08-14] MEDS: SPIRIVA INH SCH (08:00)
[2016-08-14] MEDS: COLACE PO SCH (09:07)
[2016-08-14] MEDS: CYMBALTA PO SCH ×2 (09:07→20:27)
[2016-08-14] MEDS: MULTI-VITAMIN PO SCH (09:07)
[2016-08-14] MEDS: LYRICA PO SCH ×2 (09:07→20:26)
[2016-08-14] MEDS: CARDIZEM CD PO SCH (09:07)
[2016-08-14] MEDS: LIORESAL PO SCH ×3 (09:07→20:26)
[2016-08-14] MEDS: NORCO-5 PO PRN ×2 (09:25→21:29)
[2016-08-14] MEDS ORDERED: MORPHINE IV ONE (10:26)
[2016-08-14] MEDS: MS CONTIN PO PRN (10:34)
[2016-08-14] MEDS: AUGMENTIN PO SCH ×2 (10:35→20:27)
[2016-08-14] MEDS: NS 1,000 ML IV SCH ×3 (10:41→20:26)
--- NOTE | 2016-08-14 11:04 | PROGRESS NOTE ---
DATE: 08/14/2016 SUBJECTIVE: Patient is still having a lot of pain, discomfort. She feels like she has pain across her chest. Shortness of breath as well. OBJECTIVE: Vital signs: Blood pressure was 114/61, heart rate 70, respiratory rate 18, temperature 98.1 degrees, 96% on 3 L. Cardiovascular: Tachy. She went into SVT when I was in the room with heart rate about 140s. Apparently she is going kind of in and out of that rhythm. Cardiovascular: Tachy. Pulmonary: Bilateral breath sounds. Clear to auscultation. GI: Soft, nontender, nondistended. Bowel sounds are positive. LABORATORY DATA: Hemoglobin and hematocrit 10 and 34, platelets 435,000. Chemistries looked okay. Potassium is 4.2. PROBLEM LIST: 1. Bilateral pulmonary emboli. From last admission her CT scan really has not changed. She has small distal filling defects which could be artifact. She had a V/Q scan the last time that was negative. She had Dopplers that were negative. Still not completely clear these are PEs but with recurrent pulmonary symptoms and high risk because of her cancer I think we are obligated to anticoagulate her. She is on Lovenox at this point. I will repeat her Dopplers just to see if anything has developed and we will go from there. 2. Resolving pneumonia, chronic obstructive pulmonary disease exacerbation. Continue Augmentin. 3. Recurrent supraventricular tachycardia. She is mostly rate controlled. She is on Cardizem. Will transition her to p.o. and see how she does. Because of her recurrent issues, I am going to get cardiology to evaluate her and we will go from there. We will try to convert her to p.o. today and we will see how she does. 4. Lung cancer. Aware. She has not received any treatment. We will continue to monitor very closely. DISPOSITION: Pending resolution of her multiple issues.
[2016-08-14] MEDS: MOVANTIK PO SCH (11:13)
[2016-08-14] MEDS: LOVENOX SUBQ SCH ×2 (11:42→20:27)
--- NOTE | 2016-08-14 13:25 | EKG Report ---
Test Performed on : 08/14/2016 12:05:32 PM Test Reason : freq ST Vs francisca SVT episodes Blood Pressure : / mmHG Vent. Rate : 159 BPM Atrial Rate : 159 BPM P-R Int : 000 ms QRS Dur : 090 ms QT Int : 304 ms P-R-T Axes : 000 075 239 degrees QTc Int : [address] & T wave abnormality, consider inferior ischemia ST & T wave abnormality, consider anterolateral ischemia Abnormal ECG When compared with ECG of 13-AUG-2016 09:48, (Unconfirmed) No significant change was found Unconfirmed Result
[2016-08-14] MEDS ORDERED: LANOXIN IV ONE ×2 (13:44→21:49)
[2016-08-14] MEDS: CARDIZEM PO SCH ×2 (13:54→20:27)
--- NOTE | 2016-08-14 14:07 | CONSULTATION ---
DATE OF CONSULTATION: 08/14/2016 INDICATION FOR THE CONSULTATION: SVT. PRESENT ILLNESS: Ms. Block is a 66-year-old white female with a history of lung cancer recently diagnosed in June 2016. She is followed by Dr. Polk. She apparently had an admission for evaluation of shortness of breath. She has had some recent admissions for pneumonia and apparently there has been a question of pulmonary emboli. However the CTA on this study shows questionable very distal small pulmonary emboli. She had increasing shortness of breath and thus presented. No recent issues with any fevers. No orthopnea. She has not had any heart racing that she is aware of. During this hospitalization she has had periodic bouts of SVT where she will be running a very clear sinus rhythm at around 82-85 beats per minute then will have a distinct change in her rhythm into a narrow complex SVT of around 150 beats per minute. Again, she is not symptomatic or having chest pain with any of those episodes. PAST MEDICAL HISTORY: Significant for. 1. Lung cancer under early evaluation with Dr. Polk. She has metastases to the lumbar spine, left leg, liver as well as lymphadenopathy. 2. Severe COPD with home oxygen therapy. 3. History of supraventricular tachycardia [facility]. She was last seen in March 2016. 4. Hypertension. 5. Diabetes mellitus. 6. Abdominal aortic aneurysm with previous repair. SOCIAL HISTORY: She continues to smoke. She lives with her daughter. No alcohol use. FAMILY HISTORY: Significant for hypertension. REVIEW OF SYSTEMS: A 10 system review of systems is negative except for those mentioned in HPI. PHYSICAL EXAMINATION: Vital signs: She is afebrile. Blood pressure 106/56, heart rate of 90. Presently her heart rate seems to be in the 80s and is corresponding to sinus rhythm. General: She is in no acute distress. She is very thin. Eyes: Examination shows pink conjunctivae. White sclerae. Neck: Examination shows no obvious thyromegaly or thyroid tenderness. Cardiovascular: She is in a regular rate and rhythm. She has no obvious murmurs. No S3 was heard. No lower extremity edema. Chest: Exam is clear. She has some poor inspiratory effort. Poor breath sounds heard diffusely. She has no increased work of breathing. Abdomen: Soft, nontender, nondistended. She has no obvious organomegaly. Skin Exam: Warm and dry throughout without any rashes. Neurological: She is moving all extremities well. Cranial nerves 2-12 are intact without any sensation deficits. Psychiatric: Alert and oriented. Normal mood and affect. PERTINENT DATA: CTA on the demonstrated a right lower lung mass and right hilar mediastinal adenopathy similar to previous exam compatible with malignancy, overall improvement in the pneumonia compared to a previous study and questionable small peripheral pulmonary emboli at the bilateral lower lobe versus artifact. This seemed similar to the previous exam. White count is 5.7, hematocrit is 34, platelet count is 435,000. Sodium 136, potassium 4.2, BUN 11, creatinine 0.6. EKG on presentation demonstrated sinus rhythm, rate of 83 beats per minute. She has some diffuse T-wave inversions across the precordium. Subsequent EKG after that demonstrated sinus rhythm, rate of 92 beats per minute. No signs of ischemic changes or infarct. Subsequent EKG after that on the at 9:48 shows a narrow complex tachycardia, rate of 163 beats per minute. She has ST-segment depression in V3 through V6 suggesting a rate related ischemia. Final EKG on file at 12:05 today shows narrow complex tachycardia, rate of 159 beats per minute, again mild ST depression V3 through V6 suggesting rate related ischemia. ASSESSMENT: 1. Supraventricular tachycardia. 2. Metastatic lung cancer. 3. Severe chronic obstructive pulmonary disease. PLAN: Patient has a long history of SVT followed by Dr. Barone. Previous recommendations have been to treat her with diltiazem as well as digoxin. We will start oral diltiazem and try to cut off the IV drip today. If that is effective then I would continue with that medication. We could make a consideration to initiate amiodarone therapy to try to maintain sinus rhythm as the patient will likely continue to have issues with this as her lung function declines likely with advancing lung cancer. At this point though I would just pursue AV eliseo blockers. We will check an echocardiogram as well as a TSH.
[2016-08-14] MEDS: CRESTOR PO SCH (20:26)
[2016-08-14] MEDS: XANAX PO PRN (21:59)
[2016-08-15] MEDS: MS CONTIN PO PRN (00:27)
[2016-08-15] MEDS: NS 1,000 ML IV SCH ×4 (00:30→22:38)
[2016-08-15] MEDS: MORPHINE IV PRN ×8 (01:35→22:38)
[2016-08-15] MEDS: PROTONIX PO SCH (06:32)
[2016-08-15] MEDS: MOVANTIK PO SCH (06:32)
[2016-08-15] MEDS: SYNTHROID PO SCH (06:32)
[2016-08-15 06:37] LABS: HEMATOCRIT 33.2 % (37.0-47.0); HEMOGLOBIN 10.6 g/dL (12.0-16.0); MCH 27.5 PG (27-31); MCHC 31.9 g/dL (33-37); MPV 8.3 FL (7.4-10.4); RBC 3.86 XMIL (4.2-5.4)
[2016-08-15 06:46] LABS: AGAP 13; BUN 12 mg/dL (8-22); CALCIUM 9.6 mg/dL (8.8-10.2); CHLORIDE 99 mmol/L (98-107); COSMO 274; SODIUM 136 mmol/L (136-145); TCO2 25 mmol/L (25-35)
[2016-08-15] MEDS: GLUCOPHAGE PO SCH ×2 (07:37→18:14)
[2016-08-15] MEDS: VENTOLIN HFA INH PRN ×2 (08:26→20:17)
[2016-08-15] MEDS: SPIRIVA INH SCH (08:26)
[2016-08-15] MEDS: ADVAIR 250/50 DISKUS INH SCH ×2 (08:26→20:17)
[2016-08-15] MEDS: LOVENOX SUBQ SCH (08:41)
[2016-08-15] MEDS: CYMBALTA PO SCH ×2 (08:41→21:46)
[2016-08-15] MEDS: COLACE PO SCH (08:41)
[2016-08-15] MEDS: LANOXIN PO SCH (08:41)
[2016-08-15] MEDS: MULTI-VITAMIN PO SCH (08:41)
[2016-08-15] MEDS: XANAX PO PRN ×2 (08:41→20:29)
[2016-08-15] MEDS: AUGMENTIN PO SCH ×2 (08:41→21:45)
[2016-08-15] MEDS: LIORESAL PO SCH ×3 (08:41→21:46)
[2016-08-15] MEDS: LYRICA PO SCH ×2 (08:41→21:45)
[2016-08-15] MEDS ORDERED: MS CONTIN PO ONE (11:26)
[2016-08-15] MEDS: NORCO-5 PO PRN (11:32)
[2016-08-15] MEDS ORDERED: ZANTAC PO ONE (11:34)
--- NOTE | 2016-08-15 12:08 | PROGRESS NOTE ---
DATE: 08/15/2016 SUBJECTIVE: The patient has no focal complaints, except persistent pain, but her breathing is somewhat improved. OBJECTIVE: General: Overall she is stabilizing. Vital Signs: Blood pressure 103/53, heart rate 78, respiratory rate 20, temperature 97.6 degrees, satting 94% on 3 L. Cardiovascular: Regular rate and rhythm. Pulmonary: Bilateral breath sounds. Clear to auscultation. GI: Soft, nontender, nondistended. Bowel sounds are positive. Extremity exam: No clubbing or cyanosis. Lymphatic exam: No peripheral edema. LABORATORY DATA: Basic is normal. Potassium 4. TSH is normal, which it was normal last admission. Hemoglobin and hematocrit 10 and 30. No white count. PROBLEM LIST: 1. Pulmonary embolism. Again presumably the filling defects are pulmonary embolism. Ventilation perfusion scan was negative, but we are going to go ahead and anticoagulate her because she has recurrent supraventricular tachycardia as well. I am going to switch her to Eliquis today and follow. 2. Atrial fibrillation with recurrent supraventricular tachycardia. It is back to normal, so I am going to switch her to a higher dose Cardizem. I appreciate cardiology consult. If she is not improved, we are going to load her with amiodarone and follow. 3. Diabetes appears well controlled. DISPOSITION: If we can get her off the drip, probably to the floor tomorrow.
[2016-08-15] MEDS: CARDIZEM PO SCH ×2 (13:59→21:45)
[2016-08-15] MEDS ORDERED: ELIQUIS PO SCH (21:00)
[2016-08-15] MEDS ORDERED: MS CONTIN PO SCH (21:00)
[2016-08-15] MEDS: MS CONTIN PO SCH (21:45)
[2016-08-15] MEDS: CRESTOR PO SCH (21:45)
[2016-08-16] MEDS: CARDIZEM PO SCH ×4 (02:35→20:18)
[2016-08-16] MEDS: MORPHINE IV PRN ×6 (02:38→23:15)
[2016-08-16] MEDS: XANAX PO PRN ×4 (02:38→23:15)
[2016-08-16 06:05] LABS: HEMOGLOBIN 11.4 g/dL (12.0-16.0); MCH 28.1 PG (27-31); MCHC 32.6 g/dL (33-37); MCV 86.2 FL (81-99); MPV 8.3 FL (7.4-10.4); RBC 4.06 XMIL (4.2-5.4)
[2016-08-16 06:30] LABS: AGAP 12; BUN 14 mg/dL (8-22); CALCIUM 9.8 mg/dL (8.8-10.2); CHLORIDE 97 mmol/L (98-107); COSMO 269; MAGNESIUM 1.9 mg/dL (1.5-2.7); POTASSIUM 4.1 mmol/L (3.5-5.1); SODIUM 133 mmol/L (136-145); TCO2 24 mmol/L (25-35)
[2016-08-16] MEDS: PROTONIX PO SCH (06:33)
[2016-08-16] MEDS: MOVANTIK PO SCH (06:33)
[2016-08-16] MEDS: SYNTHROID PO SCH (06:33)
[2016-08-16 06:37] LABS: HEMOGLOBIN A1C 6.6 % (4.8-6.0)
--- NOTE | 2016-08-16 07:10 | Extremity Venous Study ---
PROCEDURE NAME: Venous U/S Bilateral Legs - 08/14/2016 BILATERAL VENOUS FLOW EVALUATION: INDICATION: Pulmonary embolism. FINDINGS: The deep veins of the lower extremities demonstrate appropriate compressibility and augmentation. No intraluminal thrombus is visualized. There is no evidence for DVT. The superficial veins appear patent. IMPRESSION: No evidence for deep venous thrombosis of the bilateral lower extremities.
[2016-08-16] MEDS: GLUCOPHAGE PO SCH ×2 (08:14→17:29)
[2016-08-16] MEDS: LYRICA PO SCH ×2 (08:15→21:08)
[2016-08-16] MEDS: COLACE PO SCH (08:16)
[2016-08-16] MEDS: AUGMENTIN PO SCH ×2 (08:16→21:06)
[2016-08-16] MEDS: LIORESAL PO SCH ×3 (08:16→21:08)
[2016-08-16] MEDS: ELIQUIS PO SCH ×2 (08:16→21:07)
[2016-08-16] MEDS: CYMBALTA PO SCH ×2 (08:17→21:07)
[2016-08-16] MEDS: LANOXIN PO SCH (08:17)
[2016-08-16] MEDS: MULTI-VITAMIN PO SCH (09:32)
[2016-08-16] MEDS: MS CONTIN PO SCH ×2 (09:32→21:07)
[2016-08-16] MEDS: NS 1,000 ML IV SCH (14:38)
--- NOTE | 2016-08-16 15:41 | PROGRESS NOTE ---
DATE: 08/16/2016 SUBJECTIVE: Patient has no focal complaints. OBJECTIVE: Blood pressure 121/72, heart rate of 81, respiratory 20, temperature 97.3 degrees, 96% on 2 L. Cardiovascular: Regular rate and rhythm. Pulmonary: Bilateral breath sounds. Clear to auscultation. GI soft, nontender, nondistended. Bowel sounds are positive. Extremities: No clubbing or cyanosis. Lymphatics: No peripheral edema. Neurologic exam was nonfocal. LABORATORY DATA: Unremarkable. PROBLEM LIST: 1. Pulmonary embolus. We will discharge on Eliquis. 2. Recurrent supraventricular tachycardia. She seems to be stable on Cardizem 60 q. 6 and digoxin, so we will discharge her on those medications and translate Cardizem to CD 240 daily and digoxin daily. 3. Chronic obstructive pulmonary disease, pneumonia. She is stable on her current Augmentin. 4. Lung cancer, aware. Hopefully, she can finally make her followup with Dr. Polk for further treatment management. DISPOSITION: I anticipate she could go home tomorrow if she is doing better or she is stable into tomorrow.
[2016-08-16] MEDS: VENTOLIN HFA INH PRN (17:27)
[2016-08-16] MEDS: CRESTOR PO SCH (21:08)
[2016-08-17] MEDS: CARDIZEM PO SCH ×3 (02:02→14:45)
[2016-08-17] MEDS: MORPHINE IV PRN ×3 (04:36→14:45)
[2016-08-17] MEDS: MOVANTIK PO SCH (06:49)
[2016-08-17] MEDS: SYNTHROID PO SCH (06:49)
[2016-08-17] MEDS: PROTONIX PO SCH (06:49)
[2016-08-17] MEDS: GLUCOPHAGE PO SCH ×2 (08:02→17:22)
[2016-08-17] MEDS: LYRICA PO SCH (08:03)
[2016-08-17] MEDS: COLACE PO SCH (08:03)
[2016-08-17] MEDS: LIORESAL PO SCH ×2 (08:03→14:45)
[2016-08-17] MEDS: CYMBALTA PO SCH (08:03)
[2016-08-17] MEDS: AUGMENTIN PO SCH (08:03)
[2016-08-17] MEDS: LANOXIN PO SCH (08:03)
[2016-08-17] MEDS: MULTI-VITAMIN PO SCH (08:04)
[2016-08-17] MEDS: ELIQUIS PO SCH (08:04)
[2016-08-17] MEDS: MS CONTIN PO SCH (08:04)
[2016-08-17] MEDS: SPIRIVA INH SCH (08:41)
[2016-08-17] MEDS: ADVAIR 250/50 DISKUS INH SCH (08:41)
[2016-08-17 17:03] VITALS: BP 113/74
[2016-08-17] MEDS: NORCO-5 PO PRN (17:25)
--- NOTE | 2016-08-18 05:23 | DISCHARGE SUMMARY ---
ADMISSION DATE: 08/12/2016 DISCHARGE DATE: 08/17/2016 DISCHARGE DIAGNOSES: 1. Pulmonary embolus. 2. Recurrent supraventricular tachycardia. 3. Chronic obstructive pulmonary disease exacerbation. 4. Residual pneumonia. 5. Lung cancer. ADMISSION DIAGNOSES: 1. Pulmonary embolism. 2. Supraventricular tachycardia. HOSPITAL COURSE: Briefly, this is a patient who was recently admitted for SVT and pneumonia. She had a workup last admission with negative VQ scan and Doppler but complaining and was not anticoagulated. Discharged on anticoagulation at that time. D-dimer was elevated. She came back in for evaluation. CT scan was unchanged, still showed some filling defects in the distal pulmonary vessels that could be PE, but she was treated because she is at risk #1 with her lung cancer and #2 because she has recurrent SVT. The patient was given Lovenox and monitored closely, hydrated. Lower extremity Doppler was negative again for DVT. Patient clinically improved but she had some intermittent SVT issues so we continued the Cardizem and the patient eventually stabilized. Dr. Alba evaluated the patient on the , made some recommendations for the digoxin and Cardizem and if that did not work then they would consider amiodarone. However, it did continue to work and she stabilized enough to be able to go home. DISCHARGE MEDICATIONS: Bentyl 10 p.r.n., aspirin 81 daily, Crestor 10 daily, Cymbalta 60 b.i.d., lisinopril 5 daily, Glucophage 500 b.i.d., Synthroid 50 daily, ProAir p.r.n., Colace 300 daily, Advair 1 puff inhaled b.i.d., multivitamin daily, Nexium 20 daily, methadone 10 daily, morphine sulfate 100 b.i.d., [place] 1 p.o. b.i.d. 5 mg, Lyrica 25 b.i.d., L[place]al 10 t.i.d., Spiriva 1 puff daily, Augmentin 875 for another 5 days, Movantik 12.5 daily, Protonix 40 daily, Cardizem CD was increased to 240 daily, Eliquis 5 p.o. b.i.d., and digoxin 125. DISCHARGE CONDITION: Stable. PLAN: She will [facility], her regular PCP, and then Dr. Polk in about a week. TIME: This is a 32 minute discharge.
== END 2016-08-17 19:10 | disposition home or self-care (01) | DRG 175 ==
LOC: P.ED 18:14 → P.MEDSURG 23:16 → P.ICU 08-13 10:11 → P.MEDSURG 08-15 19:43
PROVIDERS: ATTEND Internal Medicine
DX: I26.99 Other pulmonary embolism without acute cor pulmonale (principal); J18.9 Pneumonia, unspecified organism; C77.9 Secondary and unspecified malignant neoplasm of lymph node, unspecified; C78.7 Secondary malignant neoplasm of liver and intrahepatic bile duct; J44.0 Chronic obstructive pulmonary disease with (acute) lower respiratory infection; I47.1 Supraventricular tachycardia; I48.91 Unspecified atrial fibrillation; C79.51 Secondary malignant neoplasm of bone; E87.1 Hypo-osmolality and hyponatremia; C79.89 Secondary malignant neoplasm of other specified sites; J44.1 Chronic obstructive pulmonary disease with (acute) exacerbation; C34.91 Malignant neoplasm of unspecified part of right bronchus or lung; F17.210 Nicotine dependence, cigarettes, uncomplicated; Z99.81 Dependence on supplemental oxygen; I10 Essential (primary) hypertension; E11.9 Type 2 diabetes mellitus without complications; Z79.84 Long term (current) use of oral hypoglycemic drugs; Z79.82 Long term (current) use of aspirin; Z79.891 Long term (current) use of opiate analgesic; Z79.51 Long term (current) use of inhaled steroids; Z79.899 Other long term (current) drug therapy; Z82.49 Family history of ischemic heart disease and other diseases of the circulatory system
CPT/HCPCS: 36415; 71020; 71275; 80048; 80053; 81001; 82550; 82805; 82948; 83036; 83735; 83880; 84134; 84443; 84484; 85025; 85027; 85379; 85610; 85730; 93005; 93970; 94761; 96372; J1160; J1650; J2270; J2405; J7030; Q9967; 94640-76

== ENCOUNTER 2016-08-27 20:30 | Emergency (ER) | payer OTHER ==
[2016-08-27 20:52] LABS: URINE SOURCE VOIDED
[2016-08-27] MEDS ORDERED: PHENERGAN IM ONE (21:02)
[2016-08-27] MEDS ORDERED: DILAUDID IM ONE (21:02)
--- NOTE | 2016-08-27 21:03 | PROVIDER DOCUMENTATION ---
HPI-General Adult - General Chief Complaint: General Adult Stated Complaint: BACK PAIN/SOB/UTI Time Seen by Provider: 08/27/16 20:51 Allergies/Adverse Reactions: Patient Allergies Allergy/AdvReac Type Severity Reaction Status Date / Time iodine Allergy Severe SWELLING Verified 08/27/16 20:48 lamotrigine [From Lamictal] Allergy Severe RASH Verified 08/27/16 20:48 niacin Allergy Severe RASH Verified 08/27/16 20:48 shellfish derived Allergy Severe SWELLING Verified 08/27/16 20:48 salicylates Allergy Unknown Unknown Verified 08/27/16 20:48 levofloxacin [From Levaquin] Allergy SITE Verified 08/27/16 20:48 SWELLING WITH RASH Home Medications: Home Medication List Medication Instructions Recorded Confirmed Last Taken Type Aspirin [Aspirin EC] 81 mg PO DAILY 03/20/13 08/27/16 09/16/15 01:00 History Dicyclomine [Bentyl] 10 mg PO PRN PRN 03/20/13 08/27/16 08/26/15 History Duloxetine [Cymbalta] 60 mg PO BID 03/20/13 08/27/16 09/16/15 01:00 History Lisinopril 5 mg PO HS 03/20/13 08/27/16 09/16/15 01:00 History ROSUVAstatin [Crestor] 10 mg PO QHS 03/20/13 08/27/16 09/16/15 01:00 History Metformin [Glucophage] 500 mg PO BID CC 06/15/13 08/27/16 09/15/15 15:00 History Levothyroxine [Synthroid] 50 microgm PO DAILY 06/16/14 08/27/16 09/15/15 05:00 History Albuterol Sulfate [Proair 2 puff IH Q6H PRN PRN 03/25/15 08/27/16 09/15/15 11: 00 History Respiclick] Docusate Sodium [Colace] 300 mg PO DAILY 03/25/15 08/27/16 09/16/15 01:00 History Fluticasone/Salmeterol [Advair 1 puff IH BID 03/25/15 08/27/16 09/16/15 01:00 History 250-50 Diskus] Multivitamin [Multivitamins] 1 each PO DAILY 03/25/15 08/27/16 09/16/15 01:00 History Esomeprazole Magnesium [Nexium] 20 mg PO HS 09/16/15 08/27/16 09/16/15 01:00 History Baclofen [Lioresal] 10 mg PO TID@0900,1500,2100 #30 10/12/15 08/27/16 Unknown Rx tablet Tiotropium [place] Inhaler 1 puff INH RTDAILY #1 inhaler 10/12/15 08/27/16 Unknown Rx [Spiriva] Hydrocodone/APAP 5 mg/325 mg 1 each PO BID PRN PRN 02/27/16 08/27/16 Unknown History [[place]-5] Methadone 10 mg PO DAILY PRN PRN 02/27/16 08/27/16 Unknown History Morphine Sulfate 100 mg PO BID PRN PRN 02/27/16 08/27/16 Unknown History Pregabalin [Lyrica] 25 mg PO BID 02/27/16 08/27/16 Unknown History Amoxicillin/Pot Clavulanate 875 mg PO Q12HR #10 tablet 08/07/16 08/27/16 Unknown Rx [Augmentin] Naloxegol Oxalate [Movantik] 12.5 mg PO ACB #30 tablet 08/07/16 08/27/16 Unknown Rx Pantoprazole [Protonix] 40 mg PO DAILY@07 #30 tablet 08/07/16 08/27/16 Unknown Rx Apixaban [Eliquis] 5 mg PO BID #60 tablet 08/17/16 08/27/16 Unknown Rx Digoxin [Lanoxin] 125 microgm PO DAILY #30 tablet 08/17/16 08/27/16 Unknown Rx Diltiazem C.d. [Cardizem C.d] 240 mg PO DAILY #30 capsule 08/17/16 08/27/16 Unknown Rx Nitrofurantoin [place]/Macrocryst 100 mg PO BID #14 capsule 08/27/16 Unknown Rx [Macrobid] - History of Present Illness -Gen Adult Nature of Presenting Problems: Pt states she had collins cath removed about 3 days ago and for 2 days has had dysuria. Also c/o right flank pain with palpation of right lateral ribs. States her primary tumor is in right lung and has pain in right chest and flank frequently. Currently taking morphine, norco, and methadone for pain. Location of Pain/Injury: reports: other (right lateral chest/flank area and dysuria) Pain Radiation: reports: no radiation Quality of Pain: reports: aching, burning Severity: reports: moderate Onset/Duration: reports: gradual Timing: reports: getting worse Context/Activities at Onset: reports: other (recent collins cath) Modifying Factors: improves with: analgesics Associated Symptoms: reports: chest pain (right lateral chest pain), other ( dysuria). denies: fever/chills, muscle aches, nausea Similar Symptoms Previously?: Yes Recently seen or treated by another doctor?: No Review of Systems - Adult - REVIEW OF SYSTEMS - ADULT Constitutional: reports: fatique. denies: chills, fever Eyes: denies: blurred vision, double vision Cardiovascular: reports: other (right lateral chest wall pain) Respiratory: denies: cough All Other Systems: Reviewed and Negative Past History - Adult - PAST MEDICAL HISTORY-ADULT Review of Records: reports: Old Records Reviewed, Nursing Assessment Review, Medications Reviewed Major Childhood Illnesses: reports: denies history Cardiovascular: reports: HTN, other (AAA) Respiratory: reports: asthma, COPD Gastrointestinal: reports: denies history Obstetrical/Gynecological: reports: denies history Genitourinary: reports: chronic UTI's Psychiatric: reports: anxiety Endocrine/Immune: reports: Diabetes Other Conditions: reports: other cancer (lung cancer with mets) - PRIOR SURGERIES/PROCEDURES Surgical/Procedure History: reports: hysterectomy, other (AAA,bladder tach) - IMMUNIZATION STATUS Childhood Immunizations: See Nurse Assessment Flu Vaccine: See Nurse Assessment - FAMILY HISTORY Family History: reviewed, not pertinent - SOCIAL HISTORY Smoking: greater than 1 pack/day Provider spent 3-5 mins advising pt. on dangers of tobacco.: Discussed manners to quit use, and f/u contacts for add'l counseling. Physical Exam-General - PHYSICAL EXAM-ADULT Initial Vital Signs Reviewed: Yes - CONSTITUTIONAL General Appearance: appears well, alert, no apparent distress - EYES Eyes: PERRL/EOMI, pink conjunctivae - HEAD, EARS, NOSE, MOUTH & THROAT HENMT: normocephalic/atraumatic, moist mucous membranes - NECK Neck: non-tender, full range of motion, supple - RESPIRATORY Respiratory: normal breath sounds, other (tenderness to palpation of right lateral chest). negative: crackles, rales, rhonchi, stridor, wheezing - GASTROINTESTINAL (ABDOMEN) Abdominal Exam: tenderness (suprapubic) - MUSCULOSKELETAL Back Exam: kyphosis, vertebral tenderness Extremity: normal range of motion, non-tender, no pedal edema, no calf tenderness Peripheral Pulses: dorsalis-pedis (R): 2+, dorsalis-pedis (L): 2+ - SKIN Integumentary: normal color, normal turgor, warm/dry - NEUROLOGIC Neurologic: grossly normal, no motor/sensory deficits - PSYCHIATRIC Psych/Mental Status: normal thought content, normal thought process Progress - PLAN OF CARE/RESULTS Progress/Plan/Lab Results: Vital Signs Temp Pulse Resp BP Pulse Ox 08/27/16 20:33 98 F 92 H 18 124/74 97 iodine Allergy (Severe, Verified 08/27/16 20:48) SWELLING lamotrigine [From Lamictal] Allergy (Severe, Verified 08/27/16 20:48) RASH niacin Allergy (Severe, Verified 08/27/16 20:48) RASH shellfish derived Allergy (Severe, Verified 08/27/16 20:48) SWELLING salicylates Allergy (Unknown, Verified 08/27/16 20:48) Unknown levofloxacin [From Levaquin] Allergy (Verified 08/27/16 20:48) SITE SWELLING WITH RASH Aspirin [Aspirin EC] 81 mg PO DAILY 03/20/13 Dicyclomine [Bentyl] 10 mg PO PRN PRN 03/20/13 Duloxetine [Cymbalta] 60 mg PO BID 03/20/13 Lisinopril 5 mg PO HS 03/20/13 ROSUVAstatin [Crestor] 10 mg PO QHS 03/20/13 Metformin [Glucophage] 500 mg PO BID CC 06/15/13 Levothyroxine [Synthroid] 50 microgm PO DAILY 06/16/14 Albuterol Sulfate [Proair Respiclick] 2 puff IH Q6H PRN PRN 03/25/15 Docusate Sodium [Colace] 300 mg PO DAILY 03/25/15 Fluticasone/Salmeterol [Advair 250-50 Diskus] 1 puff IH BID 03/25/15 Multivitamin [Multivitamins] 1 each PO DAILY 03/25/15 Esomeprazole Magnesium [Nexium] 20 mg PO HS 09/16/15 Baclofen [Lioresal] 10 mg PO TID@0900,1500,2100 #30 tablet 10/12/15 Tiotropium [place] Inhaler [Spiriva] 1 puff INH RTDAILY #1 inhaler 10/12/15 Hydrocodone/APAP 5 mg/325 mg [[place]ma-5] 1 each PO BID PRN PRN 02/27/16 Methadone 10 mg PO DAILY PRN PRN 02/27/16 Morphine Sulfate 100 mg PO BID PRN PRN 02/27/16 Pregabalin [Lyrica] 25 mg PO BID 02/27/16 Amoxicillin/Pot Clavulanate [Augmentin] 875 mg PO Q12HR #10 tablet 08/07/16 Naloxegol Oxalate [Movantik] 12.5 mg PO ACB #30 tablet 08/07/16 Pantoprazole [Protonix] 40 mg PO DAILY@07 #30 tablet 08/07/16 Apixaban [Eliquis] 5 mg PO BID #60 tablet 08/17/16 Digoxin [Lanoxin] 125 microgm PO DAILY #30 tablet 08/17/16 Diltiazem C.d. [Cardizem C.d] 240 mg PO DAILY #30 capsule 08/17/16 Laboratory 08/27/16 20:45 Urine Source VOIDED Urine Color YELLOW Urine Clarity SL. CLOUDY A Urine pH 6.0 Ur Specific [place] 1.010 Urine Protein NEGATIVE Urine Ketones NEGATIVE Urine Blood NEGATIVE Urine Nitrite NEGATIVE Urine Bilirubin NEGATIVE Urine Urobilinogen NORMAL Urine Microscopic RBC <10 Urine WBC 1+ A Urine Microscopic WBC 10-20 A Ur Epithelial Cells <10 Urine Bacteria 1+ Urine Yeast PRESENT Urine Glucose NEGATIVE Orders Category Date Time Status CHEST-2 VIEWS [RAD] Stat Exams 08/27/16 21:[address] W/POSS RFLX CULT [URINALYSIS] Stat Lab 08/27/16 20:45 Completed URINE CULTURE [RM] Routine Lab 08/27/16 21:32 Received Hydromorphone [Dilaudid] Med 08/27/16 21:02 Discontinued 1 mg IM NOW ONE Promethazine [Phenergan] Med 08/27/16 21:02 Discontinued 25 mg IM NOW ONE Pt declined further workup as she "does not want to be admitted for any reason" Orders Category Date Time Status CHEST-2 VIEWS [RAD] Stat Exams 08/27/16 21:[address] W/POSS RFLX CULT [URINALYSIS] Stat Lab 08/27/16 20:45 Completed URINE CULTURE [RM] Routine Lab 08/27/16 21:32 Received Hydromorphone [Dilaudid] Med 08/27/16 21:02 Discontinued 1 mg IM NOW ONE Nitrofurantoin [place]/Macrocryst [Macrobid] Med 08/27/16 22:37 Once 100 mg PO NOW ONE Promethazine [Phenergan] Med 08/27/16 21:02 Discontinued 25 mg IM NOW ONE Departure - Departure Time of Disposition Order: 22:37 DIAGNOSIS: UTI (urinary tract infection) Qualifiers: Urinary tract infection type: catheter-associated UTI Indwelling urinary catheter type: unspecified Encounter type: initial encounter Qualified Code(s): T83.511A - Infection and inflammatory reaction due to indwelling urethral catheter, initial encounter; N39.0 - Urinary tract infection, site not specified Disposition: HOME 01 Certified Medical Emergency: Emergent Condition: Good Additional Instructions: ED Follow Up Instructions: You have been treated by a care provider in the Emergency Department. These instructions are being provided to you so you can have an understanding of how to care for yourself upon discharge. Upon discharge from the Emergency Department, you are responsible for making arrangements for follow-up care by a physician of your choice. Take all prescribed medications as directed. Return to the Emergency Department immediately for any new or worsening symptoms. You may call the Physician Referral phone number at [phone] to obtain a list of Physicians who are taking new patients. Prescriptions: Nitrofurantoin [place]/Macrocryst [Macrobid] 100 mg PO BID #14 capsule Attestation - Physician/ SIVA Attestation Patient care was provided by Advanced Practice Provider:: Yes Advanced Practice Provider:: Laura Hylton Advanced Practice Provider documentation review:: The Mid-level provider documentation, treatment plan and medical decision making was reviewed by the physician who agrees with all treatment and medical decision making by the MLP.
[2016-08-27 21:30] LABS: BILIRUBIN URINE NEGATIVE (NEGATIVE); BLOOD URINE NEGATIVE (NEGATIVE); CLARITY SL. CLOUDY (CLEAR); COLOR YELLOW; GLUCOSE URINE NEGATIVE (NEGATIVE); LEUKOCYTES URINE 1+ (NEGATIVE); NITRITE URINE NEGATIVE (NEGATIVE); PROTEIN URINE NEGATIVE (NEGATIVE); UROBILINOGEN URINE NORMAL
[2016-08-27 21:31] LABS: URINE CULTURE PL NEEDED? YES; URINE EPITHELIAL CELLS <10 /HPF (<10); URINE RBC <10 /HPF (<10)
[2016-08-27] MEDS ORDERED: MACROBID PO ONE (22:37)
[2016-08-27 22:57] VITALS: BP 136/83
--- NOTE | 2016-08-28 06:17 | Diag Imaging Result Document ---
PROCEDURE NAME: CHEST-2 VIEWS - 08/27/2016 FRONTAL AND LATERAL CHEST, TWO VIEWS: COMPARISON: Compared to 08/12/2016. FINDINGS: The lungs are hyperexpanded. The heart is not enlarged. The pulmonary vessels are small. Right hilar adenopathy is similar to the prior exam. Infiltrates and atelectasis in the right middle lobe are more pronounced than on the prior study. IMPRESSION: 1. Worsening right middle and lower lobe infiltrates. 2. Stable right mediastinal adenopathy. 3. Emphysema.
== END 2016-08-27 22:57 | disposition home or self-care (01) ==
LOC: P.ED 20:30
DX: T83.511A Infection and inflammatory reaction due to indwelling urethral catheter, initial encounter (principal); N39.0 Urinary tract infection, site not specified; R30.0 Dysuria; R10.9 Unspecified abdominal pain; R53.83 Other fatigue; R07.89 Other chest pain; I10 Essential (primary) hypertension; Z86.79 Personal history of other diseases of the circulatory system; Z79.899 Other long term (current) drug therapy; J44.9 Chronic obstructive pulmonary disease, unspecified; Z87.440 Personal history of urinary (tract) infections; E11.9 Type 2 diabetes mellitus without complications; Z85.118 Personal history of other malignant neoplasm of bronchus and lung; C79.9 Secondary malignant neoplasm of unspecified site; F17.210 Nicotine dependence, cigarettes, uncomplicated; Z71.6 Tobacco abuse counseling; F41.9 Anxiety disorder, unspecified; Z79.51 Long term (current) use of inhaled steroids; Z79.82 Long term (current) use of aspirin; Z79.01 Long term (current) use of anticoagulants
CPT/HCPCS: 71020; 81001; 87088; J1170; J2550

== ENCOUNTER 2016-09-02 18:00 | Emergency (ER) | payer OTHER ==
--- NOTE | 2016-09-02 18:45 | EKG Report ---
Test Performed on : 09/02/2016 6:33:44 PM Test Reason : CHEST PAIN Blood Pressure : / mmHG Vent. Rate : 092 BPM Atrial Rate : 092 BPM P-R Int : 174 ms QRS Dur : 092 ms QT Int : 314 ms P-R-T Axes : 080 063 202 degrees QTc Int : 388 ms Normal sinus rhythm. Possible Left atrial enlargement ST & T wave abnormality, consider inferior ischemia ST & T wave abnormality, consider anterolateral ischemia Abnormal ECG When compared with ECG of 14-AUG-2016 12:05, (Unconfirmed) Vent. rate has decreased BY [address] no longer depressed in Anterior leads Unconfirmed Result
[2016-09-02 18:46] LABS: MANUAL DIFF NEEDED? NO
[2016-09-02 18:47] LABS: BASO% 0.6 % (0.0-0.8); EOS# 0.18 X1000 (0.0-0.7); EOS% 1.9 % (0.0-10.0); HEMATOCRIT 32.1 % (37.0-47.0); HEMOGLOBIN 10.4 g/dL (12.0-16.0); IMM GRAN# 0.01 X1000 (0.0-0.04); IMM GRAN% 0.1 % (0.0-0.5); LYMPH# 1.18 X1000 (1.2-3.4); LYMPH% 12.6 % (20.5-51.1); MCH 28.2 PG (27-31); MCHC 32.4 g/dL (33-37); MONO# 0.55 X1000 (0.11-0.59); MONO% 5.9 % (1.7-9.3); MPV 8.1 FL (7.4-10.4); NEUT% 78.9 % (42.2-75.2); PLT 306 X1000 (130-400); RBC 3.69 XMIL (4.2-5.4)
--- NOTE | 2016-09-02 18:58 | PROVIDER DOCUMENTATION ---
HPI-General Adult - General Source: patient, family (DAUGHTER) - History of Present Illness -Gen Adult Nature of Presenting Problems: 66 YOWF PRESENTS TO ED WITH C/O PT STATES SHE HAS LUNG CANCER THAT HAS METS TO THE LIVER. PT STATES SHE HAS HAD SOB TODAY THAT HAS GOTTEN WORSE THROUGHOUT THE DAY. PT STATES BILATERAL FEET SWELLING X 2 DAYS. 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 Location of Pain/Injury: reports: feet Pain Radiation: reports: no radiation Quality of Pain: reports: aching Severity: reports: moderate Onset/Duration: reports: 2 days ago Timing: reports: still present Context/Activities at Onset: reports: light activity Modifying Factors: improves with: nothing Associated Symptoms: reports: cough, shortness of breath, weakness Similar Symptoms Previously?: No Recently seen or treated by another doctor?: No <Ash Chung - Last Filed: 09/02/16 20:15> <Néstor Ram - Last Filed: 09/02/16 20:19> - General Chief Complaint: Shortness of Breath Stated Complaint: EDEMA,SOB Time Seen by Provider: 09/02/16 18:22 Allergies/Adverse Reactions: Patient Allergies Allergy/AdvReac Type Severity Reaction Status Date / Time iodine Allergy Severe SWELLING Verified 08/27/16 20:48 lamotrigine [From Lamictal] Allergy Severe RASH Verified 08/27/16 20:48 niacin Allergy Severe RASH Verified 08/27/16 20:48 shellfish derived Allergy Severe SWELLING Verified 08/27/16 20:48 levofloxacin [From Levaquin] Allergy SITE Verified 08/27/16 20:48 SWELLING WITH RASH Home Medications: Home Medication List Medication Instructions Recorded Confirmed Last Taken Type Dicyclomine [Bentyl] 10 mg PO PRN PRN 03/20/13 08/27/16 3 Months Ago History Duloxetine [Cymbalta] 60 mg PO BID 03/20/13 08/27/16 09/02/16 History Lisinopril 5 mg PO HS 03/20/13 08/27/16 09/02/16 History ROSUVAstatin [Crestor] 10 mg PO QHS 03/20/13 08/27/16 09/02/16 History Metformin [Glucophage] 500 mg PO BID CC 06/15/13 08/27/16 09/02/16 History Levothyroxine [Synthroid] 50 microgm PO DAILY 06/16/14 08/27/16 09/02/16 History Albuterol Sulfate [Proair 2 puff IH Q6H PRN PRN 03/25/15 08/27/16 09/02/16 History Respiclick] Docusate Sodium [Colace] 300 mg PO DAILY 03/25/15 08/27/16 09/02/16 History Fluticasone/Salmeterol [Advair 1 puff IH BID 03/25/15 08/27/16 09/02/16 History 250-50 Diskus] Multivitamin [Multivitamins] 1 each PO DAILY 03/25/15 08/27/16 09/02/16 History Esomeprazole Magnesium [Nexium] 20 mg PO HS 09/16/15 08/27/16 1 Week Ago History Baclofen [Lioresal] 10 mg PO TID@0900,1500,2100 #30 10/12/15 08/27/16 09/02/16 Rx tablet Tiotropium [place] Inhaler 1 puff INH RTDAILY #1 inhaler 10/12/15 08/27/1609/02 Rx [Spiriva] Hydrocodone/APAP 5 mg/325 mg 1 each PO BID PRN PRN 02/27/16 08/27/16 09/02/16 History [[place]-5] Morphine Sulfate 100 mg PO BID PRN PRN 02/27/16 08/27/16 09/02/16 History Pregabalin [Lyrica] 25 mg PO BID 02/27/16 08/27/16 09/02/16 History Apixaban [Eliquis] 5 mg PO BID #60 tablet 08/17/16 08/27/16 09/02/16 Rx Digoxin [Lanoxin] 125 microgm PO DAILY #30 tablet 08/17/16 08/27/16 09/02/16 Rx Diltiazem C.d. [Cardizem C.d] 240 mg PO DAILY #30 capsule 08/17/16 08/27/16 Rx Nitrofurantoin [place]/Macrocryst 100 mg PO BID #14 capsule 08/27/16 09/02/16 Rx [Macrobid] Amoxicillin/Pot Clavulanate 875 mg PO Q12HR #20 tablet 09/02/16 Unknown Rx [Augmentin] Hydroxyzine 10 mg PO DAILY 09/02/16 09/02/16 1 Day Ago History Review of Systems - Adult - REVIEW OF SYSTEMS - ADULT Constitutional: denies: chills, fever Eyes: reports: no symptoms reported Ears, Nose, Mouth & Throat: reports: no symptoms reported Cardiovascular: reports: palpitations. denies: chest pain, syncope Respiratory: reports: cough, shortness of breath. denies: wheezing Gastrointestinal: denies: abdominal pain, diarrhea, nausea, vomiting Genitourinary: reports: no symptoms reported Musculoskeletal: denies: back pain, neck pain Integumentary: reports: no symptoms reported Neurological: denies: dizziness/vertigo, headache/migraines, syncope Psychiatric: reports: no symptoms reported Endocrine: reports: no symptoms reported Hematologic/Lymphatic: reports: no symptoms reported Allergic/Immunologic: reports: no symptoms reported All Other Systems: Reviewed and Negative <Ash Chung - Last Filed: 09/02/16 20:15> Past History - Adult - PAST MEDICAL HISTORY-ADULT Review of Records: reports: Nursing Assessment Review, Medications Reviewed Cardiovascular: reports: HTN, other (AAA) Respiratory: reports: asthma, COPD Genitourinary: reports: chronic UTI's Psychiatric: reports: anxiety Endocrine/Immune: reports: Diabetes Other Conditions: reports: other cancer (lung cancer with mets) - PRIOR SURGERIES/PROCEDURES Surgical/Procedure History: reports: hysterectomy, other (AAA,bladder tach) - IMMUNIZATION STATUS Childhood Immunizations: See Nurse Assessment Flu Vaccine: See Nurse Assessment - FAMILY HISTORY Family History: reviewed, not pertinent - SOCIAL HISTORY Living Situation: family <Ash Chung - Last Filed: 09/02/16 20:15> Physical Exam-General - CONSTITUTIONAL General Appearance: alert, moderate distress - EYES Eyes: PERRL/EOMI, pink conjunctivae - HEAD, EARS, NOSE, MOUTH & THROAT HENMT: normocephalic/atraumatic, moist mucous membranes - NECK Neck: non-tender, full range of motion, supple - RESPIRATORY Respiratory: chest non-tender, rales, wheezing - CARDIOVASCULAR Cardiovascular: normal peripheral pulses, tachycardia - GASTROINTESTINAL (ABDOMEN) Abdominal Exam: normal bowel sounds, non tender, soft - LYMPHATIC Lymphatic: no adenopathy - MUSCULOSKELETAL Back Exam: normal inspection, no CVA tenderness, no vertebral tenderness Extremity: normal range of motion, non-tender - SKIN Integumentary: normal color, normal turgor, warm/dry - NEUROLOGIC Neurologic: grossly normal - PSYCHIATRIC Psych/Mental Status: oriented x 3 <Ash Chung - Last Filed: 09/02/16 20:15> Progress - PLAN OF CARE/RESULTS Progress/Plan/Lab Results: Laboratory Tests 09/02/16 09/02/16 09/02/16 18:30 18:30 18:30 WBC RBC Hgb Hct MCV MCH MCHC RDW Std Deviation Plt Count MPV Immature Gran % (Auto) Neut % (Auto) Lymph % (Auto) [place] % (Auto) Eos % (Auto) Baso % (Auto) Immature Gran # (Auto) Neut # (Auto) Lymph # (Auto) [place] # (Auto) Eos # (Auto) Baso # (Auto) Sodium 128 L Potassium 4.4 Chloride 93 L Carbon Dioxide 23 L Anion Gap 12 BUN 11 Creatinine 0.4 L Estimated GFR/1.73 m2 > 60 BUN/Creatinine Ratio 28 Glucose 121 H Calculated Osmolality 258 Calcium 9.4 Magnesium 1.6 Total Bilirubin 0.30 AST 23 ALT 13 Alkaline Phosphatase 106 H Creatine Kinase 151 Troponin T < 0.010 [id number] Pept 134 Total Protein 8.2 Albumin 3.4 L Globulin 5.0 Albumin/Globulin Ratio 1.0 09/02/16 18:30 WBC 9.40 RBC 3.69 L Hgb 10.4 L Hct 32.1 L MCV 87.0 MCH 28.2 MCHC 32.4 L RDW Std Deviation 18.7 H Plt Count 306 MPV 8.1 Immature Gran % (Auto) 0.1 Neut % (Auto) 78.9 H Lymph % (Auto) 12.6 L [place] % (Auto) 5.9 Eos % (Auto) 1.9 Baso % (Auto) 0.6 Immature Gran # (Auto) 0.01 Neut # (Auto) 7.42 H Lymph # (Auto) 1.18 L [place] # (Auto) 0.55 Eos # (Auto) 0.18 Baso # (Auto) 0.06 Sodium Potassium Chloride Carbon Dioxide Anion Gap BUN Creatinine Estimated GFR/1.73 m2 BUN/Creatinine Ratio Glucose Calculated Osmolality Calcium Magnesium Total Bilirubin AST ALT Alkaline Phosphatase Creatine Kinase Troponin T [id number]-[id number] Pept Total Protein Albumin Globulin Albumin/Globulin Ratio Orders Category Date Time Status Cardiac Monitoring DIRECTED Care 09/02/16 18:09 Active Oxygen Therapy- ED Nursing DIRECTED Care 09/02/16 18:09 Active Saline Loc NOW Care 09/02/16 18:09 Active CHEST-2 VIEWS [RAD] Stat Exams 09/02/16 18:09 Taken BLOOD CULTURE [BLDCUL] Stat Lab 09/02/16 18:35 Ordered CBC WITH ELECTRONIC DIFF [HEME] Stat Lab 09/02/16 18:30 Completed CK PROFILE [SP CHEM] Stat Lab 09/02/16 18:30 Completed COMPREHENSIVE METABOLIC PANEL [CHEM] Stat Lab 09/02/16 18:30 Completed MAGNESIUM [CHEM] Stat Lab 09/02/16 18:30 Completed PRO B-NATRIURETIC PEPTIDE Stat Lab 09/02/16 18:30 Completed TROPONIN T Stat Lab 09/02/16 18:30 Completed CefTRIAXONE 1 GM/NS [Rocephin 1 gm/Ns] 50 ml Med 09/02/16 19:28 Active IV NOW EKG [EKG] Stat Ther 09/02/16 18:09 Draft Vital Signs - 24 hr 09/02/16 18:07 Temperature 97.8 F Pulse Rate 94 H Respiratory 18 Rate Blood Pressure 114/78 O2 Sat by Pulse 94 L Oximetry - EKG 1 Time of EKG reading by physician:: 18:34 EKG Read and Signed by:: Néstor Ram EKG Interpretation (*Must complete 3 of following elements*): Abnormal Rate: 92 Rhythm: NSR [place]: normal QRS: normal Comments: POSSIBLE LEFT ATRIAL ENLARGEMNET. DIFFUSE CHANGES- CHRONIC - XRAY 1 XRAY: Bilateral XRAY Study: Chest XRAY Interpretation: NO CHANGES <Ash Chung - Last Filed: 09/02/16 20:15> Departure - Departure Time of Disposition Order: 20:16 Certified Medical Emergency: Emergent <Ash Chung - Last Filed: 09/02/16 20:15> - Departure Time of Disposition Order: 20:00 Certified Medical Emergency: Emergent <Néstor Ram - Last Filed: 09/02/16 20:19> - Departure DIAGNOSIS: Hyponatremia Cellulitis Qualifiers: Site of cellulitis: other site Qualified Code(s): L03.818 - Cellulitis of other sites Arrhythmia Qualifiers: Arrhythmia type: unspecified cardiac arrhythmia Qualified Code(s): I49.9 - Cardiac arrhythmia, unspecified Disposition: HOME 01 Condition: Fair Additional Instructions: elevate leg(s) EAT MORE! DRINK LESS WATER. EAT MOSTLY VEGETABLES, BEANS, MEAT AND FRESH FRUIT CHECK BLOOD SUGAR BEFORE BREAKFAST AND SUPPER- WRITE DOWN IN NOTEBOOK AND TAKE WITH YOU TO NEXT DOCTOR'S VISIT SO HE/SHE CAN ADJUST MEDICINE Prescriptions: Amoxicillin/Pot Clavulanate [Augmentin] 875 mg PO Q12HR #20 tablet Referrals: Renny Dillard MD [Primary Care Provider] - Attestation - Scribe Verification/Attestation Scribe:: Ash Chung Acting as Scribe for:: Néstor Ram Scribe documention review:: This chart was documented by a scribe and accurately reflects the service the provider performed and the decisions made by the provider. <Ash Chung - Last Filed: 09/02/16 20:15> Physician Attestation
[2016-09-02 19:11] LABS: AGAP 12; ALBUMIN 3.4 g/dL (3.5-5.0); ALKALINE PHOSPHATASE 106 U/L (32-104); BUN 11 mg/dL (8-22); CALCIUM 9.4 mg/dL (8.8-10.2); CHLORIDE 93 mmol/L (98-107); CK PROFILE 151 U/L (24-173); COSMO 258; GOT 23 U/L (10-30); GPT 13 U/L (10-36); MAGNESIUM 1.6 mg/dL (1.5-2.7); POTASSIUM 4.4 mmol/L (3.5-5.1); SODIUM 128 mmol/L (136-145); TCO2 23 mmol/L (25-35); TOTAL PROTEIN 8.2 g/dL (6.3-8.3)
[2016-09-02] MEDS ORDERED: ROCEPHIN 1 GM/NS 50 ML IV ONE (19:28)
[2016-09-02 20:09] VITALS: BP 128/083
--- NOTE | 2016-09-03 08:00 | Diag Imaging Result Document ---
PROCEDURE NAME: CHEST-2 VIEWS - 09/02/2016 FRONTAL AND LATERAL CHEST, THREE VIEWS: COMPARISON: Compared to 08/27/2016. FINDINGS: Right hilar density is similar to the prior exam. The lungs are well expanded. The heart is not enlarged. The vessels are not distended. Slight interval improvement in the right basilar infiltrates. There are tiny effusions. The patient has scoliosis. IMPRESSION: Slight interval improvement in the right base.
== END 2016-09-02 20:57 | disposition home or self-care (01) ==
LOC: P.ED 18:00
DX: I49.9 Cardiac arrhythmia, unspecified (principal); L03.818 Cellulitis of other sites; E87.1 Hypo-osmolality and hyponatremia; R06.02 Shortness of breath; R05 Cough; R94.31 Abnormal electrocardiogram [ECG] [EKG]; I10 Essential (primary) hypertension; R00.0 Tachycardia, unspecified; Z79.899 Other long term (current) drug therapy; E11.9 Type 2 diabetes mellitus without complications; Z85.118 Personal history of other malignant neoplasm of bronchus and lung; C79.9 Secondary malignant neoplasm of unspecified site; Z86.79 Personal history of other diseases of the circulatory system; Z87.440 Personal history of urinary (tract) infections; Z79.51 Long term (current) use of inhaled steroids; Z79.01 Long term (current) use of anticoagulants
CPT/HCPCS: 71020; 80053; 82550; 83735; 83880; 84484; 85025; 87040; 93005; 96365; J0696